=== PATIENT | female | born 1970 | race African-American/Black ===

== ENCOUNTER 2016-11-02 10:41 | Inpatient (IN) | payer MEDICARE, OTHER ==
[~2016-11-02] VITALS: Ht 165.1 cm; Wt 90.7 kg
[~2016-11-02 10:41] MED LIST: ACID CONTROL150 MG PO; ALBUTEROL SULF8.5 GM INH; ASPIRIN81 MG ORAL; ATIVAN0.5 MG ORAL; BACLOFEN10 MG PO; BUPROPION XL150 MG ORAL; DILAUDID2 MG ORAL; DOCUSATE SODIU100 MG ORAL; FLAGYL500 MG ORAL; GABAPENTIN600 MG ORAL; HYDROCODON-ACE1 EAC2 PO; LEVAQUIN500 MG ORAL; LOSARTAN POTAS100 MG ORAL; LOSARTAN POTASS25 MG ORAL; MEDROL DOSEPAK4 MG ORAL; METHOCARBAMOL750 MG ORAL; METRONIDAZOLE375 MG ORAL; NORCO 10/3251 EA ORAL; NORCO 5-325 TA1 EACH ORAL; PLAVIX75 MG ORAL; PROAIR HFA8.5 GM INH; PROPRANOLOL HCL10 MG ORAL; SOMA350 MG PO; SYMBICORT 1601 PUFFS INH; TRAMADOL HCL100 M2 ORAL; WELLBUTRIN XL150 M1 ORAL; WELLBUTRIN XL150 MG ORAL
[2016-11-02] MEDS ORDERED: Morphine Sulfate 4mg/ml Inj IVP ONE ×2 (12:00→14:45)
[2016-11-02 12:03] VITALS: BP 141/76
--- NOTE | 2016-11-02 12:12 | Diagnostic Imaging Report ---
Indication: Chest Pain Comparison: 12/21/15 A single view chest radiograph was obtained. Findings: No definite infiltrate or pulmonary vascular congestion identified. The heart is enlarged. The aorta is mildly enlarged consistent with atherosclerotic vascular disease. The bones are osteopenic. Impression: No acute disease
[2016-11-02 12:22] LABS: BASOPHILS % (AUTO) 1.1 % (0.0-2.0); EOSINOPHILS % (AUTO) 0.1 % (0.0-3.0); LYMPHOCYTES % (AUTO) 37.6 % (20.0-45.0); MEAN CORPUSCULAR HEMOGLOBIN 32.1 PG (27.0-31.0); MEAN CORPUSCULAR HGB CONC 33.3 G/DL (32.0-36.0); MEAN CORPUSCULAR VOLUME 96 FL (80-99); MEAN PLATELET VOLUME 5.9 FL (6.5-10.1); NEUTROPHILS % (AUTO) 52.2 % (45.0-75.0); PLATELET COUNT 279 K/UL (150-450); RED BLOOD COUNT 4.45 M/UL (4.20-5.40); RED CELL DISTRIBUTION WIDTH 14.5 % (11.6-14.8); WHITE BLOOD COUNT 6.9 K/UL (4.8-10.8)
[2016-11-02 12:31] LABS: INR 0.9 (0.9-1.1); PROTHROMBIN TIME 9.6 SEC (9.30-11.50)
[2016-11-02 12:37] LABS: ALANINE AMINOTRANSFERASE 23 U/L (3-33); ALBUMIN/GLOBULIN RATIO 1.4 (1.0-2.7); ANION GAP 19 (5-15); ASPARTATE AMINO TRANSFERASE 27 U/L (5-40); CALCIUM 9.1 mg/dL (8.6-10.2); CARBON DIOXIDE 20 mEQ/L (20-30); CHLORIDE 104 mEQ/L (98-107); CREATININE 0.9 mg/dL (0.5-0.9); GLOMERULAR FILTRATION RATE > 60 mL/min (>60); HEMOLYSIS 9; POTASSIUM 4.3 mEQ/L (3.4-4.9); SODIUM 143 mEQ/L (135-145); TOTAL PROTEIN 7.5 g/dL (6.6-8.7)
[2016-11-02 12:38] LABS: TROPONIN I < 0.30 ng/mL (<=0.30)
--- NOTE | 2016-11-02 12:40 | Diagnostic Imaging Report ---
Indication: Headache Technique: Contiguous 5 mm thick transaxial imaging of the head obtained in a Siemens Sensation [address] scanner. Soft tissue and bone windows generated. Total Dose length Product (DLP): [address] Dose Index Volume (CTDIvol): 70.38 mGy Comparison: 10/31/15 Findings: The size and configuration of the cortical sulci, basal cisterns, and ventricles are within normal limits for age. There is no mass effect, midline shift, or edema identified. There is no evidence of acute hemorrhage or abnormal intra-axial or extra-axial fluid collections. The bones and soft tissues are unremarkable. Impression: No mass effect, edema or acute bleed. The CT scanner at [facility] is accredited by the [employer] and the scans are performed using protocols designed to limit radiation exposure to as low as reasonably achievable to attain images of sufficient resolution adequate for diagnostic evaluation.
[2016-11-02 12:47] LABS: CKMB < 1.5 ng/mL (< 3.8)
--- NOTE | 2016-11-02 14:51 | Emergency Room Report ---
History of Present Illness General Chief Complaint: General Complaint Source: Patient Present Illness HPI Patient presents with complaints of weakness in her left side patient feels a numbness sensation to her facial area Also reports numbness to her left arm and leg Patient has had a previous CVA The onset of symptoms were about 24 hours ago Patient reports that she feels that her speech is also affected with difficulty tried to fully open her mouth Denies any neck pain or photophobia denies any fall or trauma Denies any chest pressures or shortness of breath Allergies: Coded Allergies: LISINOPRIL (Verified Allergy, Severe, Shortness of Breath, 07/02/13) coughing, vomiting SULFA (SULFONAMIDE ANTIBIOTICS) (Verified Allergy, Severe, Hives, 07/02/13) GABAPENTIN (Unverified Allergy, Unknown, 06/21/15) ACETAMINOPHEN (Verified Adverse Reaction, Intermediate, upset stomach, ) PREGABALIN (Verified Adverse Reaction, Intermediate, 07/04/13) PT STATES SHE GETS SWOLLEN Uncoded Allergies: SULFA (Allergy, Unknown, 12/21/15) Patient History Past Medical History: see triage record Pertinent Family History: none Last Menstrual Period: None Now: No : 1 Para: 0 Reviewed Nursing Documentation: PMH: Agreed, PSxH: Agreed Nursing Documentation-PMH Hx Hypertension: Yes Hx Pacemaker: No Hx Asthma: Yes - sarcoidosis, fibromyalgia Hx COPD: Yes Hx Diabetes: Yes Hx Cancer: Yes Hx Gastrointestinal Problems: No Hx Dialysis: No Hx Neurological Problems: Yes Hx Cerebrovascular Accident: Yes - 2010 Hx Seizures: No Hx Dysphasia: Yes Hx Numbness: Yes - Right sided numbness Hx Weakness: Yes - Generalized weakness Review of Systems All Other Systems: negative except mentioned in HPI Physical Exam Vital Signs Date Time Temp Pulse Resp B/P Pulse Ox O2 Delivery O2 Flow Rate FiO2 11/02/16 10:48 98.4 97 18 141/81 98 Room Air Sp02 EP Interpretation: reviewed, normal General Appearance: mild distress - Patient appears anxious Head: normocephalic, atraumatic Eyes: bilateral eye EOMI, bilateral eye PERRL ENT: hearing grossly normal, normal pharynx, TMs + canals normal, uvula midline Neck: full range of motion, supple, no meningismus, no bony tend Respiratory: lungs clear, normal breath sounds, no rhonchi, no respiratory distress, no retraction, no accessory muscle use Cardiovascular #1: normal peripheral pulses, regular rate, rhythm, no edema, no gallop, no JVD, no murmur Gastrointestinal: normal bowel sounds, non tender, soft, no mass, no organomegaly, non-distended, no guarding, no hernia, no pulsatile mass, no rebound Genitourinary: no CVA tenderness Musculoskeletal: other - 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, I do not appreciate any obvious facial droop patient subjectively however feels a numbness sensation , Neurologic: oriented x3, responsive, sensory intact Psychiatric: mood/affect normal Skin: normal color, no rash, warm/dry, palpation normal Lymphatic: normal inspection, no adenopathy Medical Decision Making Diagnostic Impression: Primary Impression: facial numbness Additional Impression: CVA (cerebral vascular accident) ER Course Patient is a fairly complex patient with multiple differential to consideration including but not limited to cardiac cardiopulmonary and intracranial vascular emergencies Patient's CT head does not show any acute disease Baseline blood work is an appropriate levels patient was given aspirin also required pain control for diffuse body ache and stable for further inpatient care Labs Test 11/02/16 12:10 White Blood Count 6.9 K/UL (4.8-10.8) Red Blood Count 4.45 M/UL (4.20-5.40) Hemoglobin 14.3 G/DL (12.0-16.0) Hematocrit 42.9 % (37.0-47.0) Mean Corpuscular Volume 96 FL (80-99) Mean Corpuscular Hemoglobin 32.1 PG (27.0-31.0) Mean Corpuscular Hemoglobin Concent 33.3 G/DL (32.0-36.0) Red Cell Distribution Width 14.5 % (11.6-14.8) Platelet Count 279 K/UL (150-450) Mean Platelet Volume 5.9 FL (6.5-10.1) Neutrophils (%) (Auto) 52.2 % (45.0-75.0) Lymphocytes (%) (Auto) 37.6 % (20.0-45.0) Monocytes (%) (Auto) 9.0 % (1.0-10.0) Eosinophils (%) (Auto) 0.1 % (0.0-3.0) Basophils (%) (Auto) 1.1 % (0.0-2.0) Prothrombin Time 9.6 SEC (9.30-11.50) Prothromb Time International Ratio 0.9 (0.9-1.1) Activated Partial Thromboplast Time 22 SEC (23-33) Sodium Level 143 mEQ/L (135-145) Potassium Level 4.3 mEQ/L (3.4-4.9) Chloride Level 104 mEQ/L (98-107) Carbon Dioxide Level 20 mEQ/L (20-30) Anion Gap 19 (5-15) Blood Urea Nitrogen 14 mg/dL (7-23) Creatinine 0.9 mg/dL (0.5-0.9) Estimat Glomerular Filtration Rate > 60 mL/min (>60) Glucose Level 94 mg/dL (74-106) Calcium Level 9.1 mg/dL (8.6-10.2) Total Bilirubin 0.4 mg/dL (0.0-1.2) Aspartate Amino Transf (AST/SGOT) 27 U/L (5-40) Alanine Aminotransferase (ALT/SGPT) 23 U/L (3-33) Alkaline Phosphatase 99 U/L (35-104) Total Creatine Kinase 113 U/L (26-140) Creatine Kinase MB < 1.5 ng/mL (< 3.8) Creatine Kinase MB Relative Index Troponin I < 0.30 ng/mL (<=0.30) Total Protein 7.5 g/dL (6.6-8.7) Albumin 4.4 g/dL (3.5-5.2) Globulin 3.1 g/dL Albumin/Globulin Ratio 1.4 (1.0-2.7) Rhythm Strip Diag. Results EP Interpretation: yes Rate: 66 Rhythm: NSR, no PVC's, no ectopy Chest X-Ray Diagnostic Results EP Interpretation: Yes Findings: no consolidation, no effusion, no pneumothorax Number of Views: 1 CT/MRI/US Diagnostic Results CT/MRI/US Diagnostic Results : Impression CT head no acute disease Last Vital Signs Date Time Temp Pulse Resp B/P Pulse Ox O2 Delivery O2 Flow Rate FiO2 11/02/16 12:45 98.5 11/02/16 12:03 96 18 141/76 99 Room Air Status: improved Disposition: ADMITTED INPATIENT Condition: Serious Referrals: NON PHYSICIAN (PCP) LUIS HIGUERA D.O. Nov 02, 2016 14:51
[2016-11-02 15:42] VITALS: BP 144/79
[2016-11-02 16:00] VITALS: BP 121/80
[2016-11-02] MEDS ORDERED: DuoNeb 0.5-3(2.5)mg/3ml neb HHN PRN (17:00)
[2016-11-02] MEDS: Docusate 100mg cap ORAL SCH (18:38)
[2016-11-02] MEDS: Morphine Sulfate 2mg/ml Inj IVP PRN ×2 (18:42→23:52)
[2016-11-02 20:00] VITALS: BP 123/67
[2016-11-02] MEDS: Heparin 5000 units/ml inj SUBQ SCH (22:19)
--- NOTE | 2016-11-02 23:28 | History and Physical Report ---
DATE OF ADMISSION: 11/02/2016 CHIEF COMPLAINT: Possible TIA and stroke. HISTORY OF PRESENT ILLNESS: She is a pleasant, but unfortunate 46-year-old female. She has a history of sarcoidosis, prior history of stroke, hypertension, asthma, and fibromyalgia. She presented to the emergency room with complaints of left-sided weakness and numbness that started on the day of admission. According to the patient, she was well until the day of admission when she woke up feeling weak on the left side. She also noted some numbness. She does have a prior history of stroke. She is on Plavix. She is otherwise been doing well. She denies any fever or chills. Denies any headaches. PAST MEDICAL HISTORY: Significant for history as above. PAST SURGICAL HISTORY: Includes history of removal of several breast masses. She has a history of a facial mass, status post excision. CURRENT MEDICATIONS: Reconciled and reviewed. ALLERGIES: Include gabapentin, lisinopril, Lyrica, Sulfa, and acetaminophen. FAMILY HISTORY: Noncontributory. SOCIAL HISTORY: There is no history of tobacco, ethanol, or drugs. REVIEW OF SYSTEMS: General: No fever or chills. HEENT: No headaches or visual changes. Positive for facial numbness. Gastrointestinal: No nausea or vomiting. Cardiopulmonary: No chest pain or shortness of breath. Genitourinary: No urinary frequency. Musculoskeletal: Positive history of fibromyalgia. Neurologic: No history of seizures. Positive history of stroke in the past. PHYSICAL EXAMINATION: VITAL SIGNS: Temperature 98 degrees, blood pressure is 121/80, pulse 77, and respirations 20. GENERAL: The patient is a well-developed female, in no apparent distress. HEENT: Pupils are equal, round, and reactive to light. Oropharynx is clear. There is no facial droop noted. NECK: Is supple with no lymphadenopathy. No carotid bruits. HEART: Regular rate and rhythm. LUNGS: Clear. ABDOMEN: Soft, nontender, and nondistended. EXTREMITIES: Without clubbing, cyanosis. NEUROLOGIC: There is no focal weakness or numbness noted. The patient states her weakness and numbness is improved. IMAGING: CT scan of the head showed no acute stroke. LABORATORY DATA: Labs are otherwise unremarkable. ASSESSMENT: 1. This is a pleasant female with a prior history of stroke admitted with complaints of left-sided weakness and numbness, possibly secondary to transient ischemic attack with left-sided weakness transient, rule out transient ischemic attack, rule out stroke. 2. Asthma. 3. Hypertension. 4. History of sarcoidosis. 5. Fibromyalgia. PLAN: Admit to monitored bed. Check an echo and a carotid duplex. Consider an MRI scan in the morning. Continue outpatient cardiac regimen. Continue respiratory treatments. Continue outpatient pain regimen. PT, OT, and ST evaluations. Jeremias Altamirano M.D. DR: JOHAN JOB#: [id number] CC:
[2016-11-03] VITALS: BP 127/78
[2016-11-03 04:02] VITALS: BP 124/75
[2016-11-03] MEDS: Morphine Sulfate 2mg/ml Inj IVP PRN ×5 (05:52→23:45)
--- NOTE | 2016-11-03 08:02 | General Progress Note ---
Assessment/Plan Problem List: (1) Facial pain ICD Codes: R51 - Headache SNOMED: 15585509 (2) facial numbness (3) TIA (transient ischemic attack) ICD Codes: G45.9 - TIA (transient ischemic attack) SNOMED: 406532099 (4) CVA (cerebral vascular accident) ICD Codes: I63.9 - Cerebral infarction, unspecified SNOMED: 114682583 (5) Sarcoidosis of lung ICD Codes: D86.0 - Sarcoidosis of lung SNOMED: 15103733 Status: stable Assessment/Plan antiplt rx with plavix check mri follow carotid duplex and echo monitor arrythmia Subjective ROS Limited/Unobtainable: No Constitutional: Reports: malaise, weakness HEENT: Reports: no symptoms Cardiovascular: Reports: no symptoms Respiratory: Reports: cough Gastrointestinal/Abdominal: Reports: no symptoms Genitourinary: Reports: no symptoms Neurologic/Psychiatric: Reports: numbness, pre-existing deficit, tingling, weakness Endocrine: Reports: no symptoms Hematologic/Lymphatic: Reports: no symptoms Allergies: Coded Allergies: LISINOPRIL (Verified Allergy, Severe, Shortness of Breath, 07/02/13) coughing, vomiting SULFA (SULFONAMIDE ANTIBIOTICS) (Verified Allergy, Severe, Hives, 07/02/13) GABAPENTIN (Unverified Allergy, Unknown, 06/21/15) ACETAMINOPHEN (Verified Adverse Reaction, Intermediate, upset stomach, ) PREGABALIN (Verified Adverse Reaction, Intermediate, 07/04/13) PT STATES SHE GETS SWOLLEN All Systems: reviewed and negative except above Subjective still feels "weak" and "numb" on the left side and face. no headaches. MRI completed. no results yet. Objective Last 24 Hour Vital Signs Date Time Temp Pulse Resp B/P Pulse Ox O2 Delivery O2 Flow Rate FiO2 11/03/16 04:02 98.8 90 20 124/75 95 Room Air 11/03/16 00:00 85 11/03/16 00:00 97.7 87 20 127/78 97 Room Air 11/02/16 20:00 90 11/02/16 20:00 97.4 88 20 123/67 98 Room Air 11/02/16 16:00 92 11/02/16 16:00 98.2 77 20 121/80 95 Room Air 11/02/16 15:43 98.5 94 20 144/79 96 Room Air 11/02/16 15:42 98.5 94 20 144/79 96 Room Air 11/02/16 15:18 98.5 11/02/16 12:45 98.5 11/02/16 12:03 96 18 141/76 99 Room Air 11/02/16 10:48 98.4 97 18 141/81 98 Room Air Intake and Output 11/02/16 11/03/16 19:00 07:00 Intake Total 0 ml 500 ml Balance 0 ml 500 ml Intake Oral 0 ml 500 ml # Bowel Movements 1 Laboratory Tests 11/02/16 12:10: White Blood Count 6.9, Red Blood Count 4.45, Hemoglobin 14.3, Hematocrit 42.9, Mean Corpuscular Volume 96, Mean Corpuscular Hemoglobin 32.1H, Mean Corpuscular Hemoglobin Concent 33.3, Red Cell Distribution Width 14.5, Platelet Count 279, Mean Platelet Volume 5.9L, Neutrophils (%) (Auto) 52.2, Lymphocytes (%) (Auto) 37.6, Monocytes (%) (Auto) 9.0, Eosinophils (%) (Auto) 0.1, Basophils (%) (Auto ) 1.1, Prothrombin Time 9.6, Prothromb Time International Ratio 0.9, Activated Partial Thromboplast Time 22L, Sodium Level 143, Potassium Level 4.3, Chloride Level 104, Carbon Dioxide Level 20, Anion Gap 19H, Blood Urea Nitrogen 14, Creatinine 0.9, Estimat Glomerular Filtration Rate > 60, Glucose Level 94, Calcium Level 9.1, Total Bilirubin 0.4, Aspartate Amino Transf (AST/SGOT) 27, Alanine Aminotransferase (ALT/SGPT) 23, Alkaline Phosphatase 99, Total Creatine Kinase 113, Creatine Kinase MB < 1.5, Creatine Kinase MB Relative Index , Troponin I < 0.30, Total Protein 7.5, Albumin 4.4, Globulin 3.1, Albumin/ Globulin Ratio 1.4 Height (Feet): 5 Height (Inches): 5.00 Weight (Pounds): 200 General Appearance: WD/WN, alert Neck: supple Cardiovascular: regular rhythm Respiratory/Chest: lungs clear, normal breath sounds, no respiratory distress Abdomen: normal bowel sounds, non tender, soft, no organomegaly Edema: no edema noted Arm (L), no edema noted Arm (R), no edema noted Leg (L), no edema noted Leg (R), no edema noted Pedal (L), no edema noted Pedal (R), no edema noted Generalized 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
[2016-11-03 08:07] VITALS: BP 131/71
[2016-11-03] MEDS: Docusate 100mg cap ORAL SCH ×2 (08:51→18:24)
[2016-11-03] MEDS: BuPROPion XL 150mg tab ORAL SCH (08:53)
[2016-11-03] MEDS: Heparin 5000 units/ml inj SUBQ SCH ×2 (08:54→22:30)
[2016-11-03] MEDS ORDERED: Losartan 25mg tab ORAL SCH (09:00)
--- NOTE | 2016-11-03 10:29 | Diagnostic Imaging Report ---
Indication: 46-year-old female with left-sided weakness. Technique: The head was imaged in a 1.5 Ana Maria magnet. Sequences obtained include sagittal and axial T1 FLAIR, axial T2 fast spin echo with fat saturation, axial T2 FLAIR, diffusion and ADC map. Comparison: CT head 10/31/15, MRI head 11/02/15 and 07/02/13. Findings: There are a few scattered periventricular and subcortical T2 hyperintense foci best demonstrated on T2 FLAIR sequences. No contrast was given. Comparison to previous studies show some of these lesions were present previously. There is one prominent lesion that is no longer seen within the left parietal lobe (for example previous MRI 11/02/15, series 9, image 12). The findings are suspicious for demyelinating disease. The diagnosis was suggested in 2013 MRI report. Correlation with prior clinical workup (if done) or additional workup is strongly suggested. There is no mass effect or edema. Basal cisterns, ventricles, cerebral sulci appear normal. Corpus callosum, sella, osseous bone marrow signal are unremarkable. There is no diffusion restriction. Impression: Suspicion of demyelinating disease given multiple foci of T2 hyperintensity within white matter tracts, mainly portions of the centrum semiovale. These lesions have changed in intensity and number in comparison to MRIs performed in 2013 and 2016. Further clinical workup for multiple sclerosis is recommended and research into whether prior clinical workups have been performed is recommend.
[2016-11-03 11:23] VITALS: BP 119/81
[2016-11-03 16:00] VITALS: BP 123/77
--- NOTE | 2016-11-03 16:40 | Neurology Progress Note ---
Interim History Interim History ROS Limited/Unobtainable: No Objective Physical Exam Last Vital Signs Date Time Temp Pulse Resp B/P Pulse Ox O2 Delivery O2 Flow Rate FiO2 11/03/16 16:00 97.9 92 20 123/77 95 Room Air Impression/Recommendations Problems: (1) recurrentTIA like episodes.r/o DRAFTING LAYOUT MAN sarcoidosis, r/o demyelination/MS (2) chronic pain/fibromyalgia (3) Depression with anxiety Status: stable, unchanged Recommendations #[id number] KATRIN ESTEVEZ Nov 03, 2016 16:40
[2016-11-03 20:00] VITALS: BP 131/79
--- NOTE | 2016-11-03 23:27 | Consultation ---
DATE OF CONSULTATION: 11/03/2016 NEUROLOGICAL CONSULTATION CONSULTING PHYSICIAN: Thom Mackey M.D. REQUESTING PHYSICIAN: Jeremias Altamirano M.D. HISTORY OF PRESENT ILLNESS: The patient is a 46-year-old female, seen in neurological consultation to evaluate new onset of weakness in left side of the body, numbness in her left facial area, and numbness in her left leg and left arm. Her vital signs on admission were stable. She has blood pressure of 140/81 and temperature 98.2 degrees. There was no objective neurological findings detected. Her imaging studies included CAT scan of the brain that revealed no mass effect, no edema, and no acute bleed, essentially normal study. MRI of the brain without contrast revealed a few scattered periventricular subcortical hyperintense foci. This was compared with the previous study from 07/02/2013. Some of the lesions were present previously. Findings were suspicious for demyelinating disease. There is no mass effect and no edema. There was impression of suspicious for demyelinating disease given multiple foci within white matter and mainly centrum semiovale, which changed in intense and number when compared with the previous study from 2012. Laboratory work included normal CBC study, normal coagulation panel, and chemistry panel was unremarkable except anion gap of 19. The patient now informs me that left facial numbness occurred on and off for many years, now her main concern is for generalized body ache and pain more on the touch and more when exposed to cold weather. She developed off and on imbalance over several years. She has at times blurriness of vision, on and off diffuse headaches presumptively in occipital region, and she has a history of urinary incontinence since 2013. The patient is known to me from a previous assessment in June 2013 when she presented with a history of disseminated sarcoidosis since 1996 when she had meningeal signs and had a spinal tap, which confirmed the diagnosis. The patient had new episodes of possible stroke with symptoms such as slurred speech and clumsiness, weakness in lower extremities with MRI of the brain revealing deep white matter changes suspicious for demyelinating process. The patient had a spinal tap done with the findings inconclusive and the diagnosis of MS was not confirmed. The patient also presented with numbness in her face, tingling sensation in hands and feet, and off balance when ambulating. There was hypersensitivity in both upper and lower extremities. PAST MEDICAL HISTORY: Since she was diagnosed with sarcoidosis, she developed signs of hypertension, diabetes type 2, hyperlipidemia, bronchial asthma, she developed morbid obesity, chronic pain syndrome, suspected to be fibromyalgia, although sarcoid myopathy, and polyneuropathy were also suspected. Her laboratory work in 2013 revealed it was negative for Lyme disease, negative for HIV. Her CSF was negative except slight lymphocytic leukocytosis with normal protein and sugar, negative JUAN A, but elevated triglycerides, and coagulopathy panel was negative. The patient has a history of a leaking valve and obesity as well. MEDICATIONS: Her treatment prior to admission included albuterol, Wellbutrin 300 mg daily, Soma, Plavix, hydrocodone 10 mg t.i.d. p.r.n., and losartan. ALLERGIES: Gabapentin, lisinopril, Lyrica, sulfa drugs, Tylenol, and acetaminophen. FAMILY HISTORY: Noncontributory. SOCIAL HISTORY: The patient indicates that she has no established place to live, but she is planning to live. The patient blames this on the fact that her apartment was infested with a mold and for this reason, she was hospitalized three months ago at [facility]. She is living in apartment and looking for another one. Denies alcohol or drug abuse. REVIEW OF SYMPTOMS: A 13-point review of system was obtained and was negative except those in history of present illness. PHYSICAL EXAMINATION: GENERAL: A well-developed, morbidly obese female, not in acute distress, but is quite anxious. VITAL SIGNS: Stable. Blood pressure 133/77, respirations 18, and heart rate of 92. HEENT: Head, normocephalic. No evidence of trauma. The patient is very concerned that she has some sharp pains in occipital region. There is palpable tenderness even on a slight touch of upper back, but diffusely the whole body. The patient is withdrawing when slightly touched to any parts of the body and was barely tolerating pin sensation. EXTREMITIES: Peripheral pulses 1+ symmetric. MENTAL STATUS: Alert and oriented x3 with no evidence of aphasia or apraxia. Cognitive function normal. Emotional, labile, tense, anxious, and seems depressed. CRANIAL NERVE II: Pupils both responding to light and accommodation. Extraocular movement intact. No nystagmus. CRANIAL NERVE V: Normal corneal responses. CRANIAL NERVE VII: No facial asymmetry. CRANIAL NERVE VIII: Normal hearing. CRANIAL NERVE IX THROUGH XII: Within normal limits. MOTOR EXAMINATION: Able to lift arms and legs against the gravity. Strength is 5/5. Deep tendon reflexes 1+ symmetric with downgoing toes on both sides. SENSORY EXAMINATION: Hypersensitivity, generalized. Gait is slow, but stable. IMPRESSION: 1. This is a 46-year-old lady with generalized sarcoidosis presenting with intermittent transient ischemic attack-like symptomatology in the setting of abnormal MRI studies. Rule out central nervous system sarcoidosis, rule out demyelinating disease. 2. Hypertension. 3. Chronic pain syndrome, myalgia, and generalized hypersensitivity. 4. Morbid obesity. RECOMMENDATION: Repeat LP, obtain demyelinating profile and BABITA titer. The patient to continue with aspirin. Started on statins to prevent from stroke in the setting of hyperlipidemia. The patient is to continue with antidepressants, also psychiatry assessment to streamline her treatment. Thank you for allowing me to see this interesting patient in neurological consultation. Thom Mackey M.D. DR: PREMA JOB#: [id number] CC:
[2016-11-04] VITALS: BP 155/74
--- NOTE | 2016-11-04 01:37 | Progress Note ---
DATE: 11/03/2016 CARDIOLOGY PROGRESS NOTE SUBJECTIVE: The patient still feels weakness and numbness on the left side. No headache. MRI reviewed hyperintense foci noted. Monitored rhythm sinus with no ectopy. OBJECTIVE: VITAL SIGNS: Afebrile. Blood pressure 124/75, pulse 90, and respirations 20. HEENT: Conjunctivae are pink. Oropharynx is clear. No facial asymmetry. NECK: Supple. No bruits. LUNGS: Clear. CARDIAC: Regular rhythm and rate. Normal S1 and S2. No murmur. There is a fourth heart sound. ABDOMEN: Soft. EXTREMITIES: No edema. LABORATORY DATA: Unremarkable from admission. IMPRESSION: 1. Transient ischemic attack. 2. Systemic sarcoidosis. 3. Hypertensive heart disease with controlled blood pressure range. 4. Cardiomyopathy with no signs of cardiac arrhythmias at this time. PLAN: 1. Anti-platelet therapy. 2. Follow up lipid panel and consider statin therapy. 3. Await MRI reviewed by neurologist. 4. Await carotid duplex studies. Alphonse Washington M.D. DR: ROBI JOB#: [id number] CC:
--- NOTE | 2016-11-04 03:07 | Consultation ---
DATE OF CONSULTATION: 11/02/2016 CARDIOLOGY CONSULTATION: REQUESTING PHYSICIAN: Jeremias Altamirano M.D. REASON FOR CONSULTATION: Left-sided weakness in the setting of hypertensive cardiomyopathy and systemic sarcoidosis. HISTORY OF PRESENT ILLNESS: This is a 46-year-old female. She has a history of systemic sarcoidosis and hypertensive cardiomyopathy. She presented to the emergency room with left-sided weakness, numbness of her face, and was admitted for further management. Her initial workup including a CAT scan of the brain revealed no acute process and MRI revealing scattered subcortical hyperintense foci. Her initially electrocardiogram revealed sinus rhythm with no acute abnormalities. I have been asked to assist with further cardiovascular care. PAST MEDICAL HISTORY: Systemic sarcoidosis, hypertension, diabetes mellitus type 2, hyperlipidemia, asthma, chronic pain syndrome due to fibromyalgia, and fibrocystic breast disease with history of breast biopsies. MEDICATIONS: Prior to admission, reviewed and reconciled. ALLERGIES: Include lisinopril, sulfa, acetaminophen, gabapentin, and Lyrica. SOCIAL HISTORY: Negative for smoking, alcohol, or substance abuse. FAMILY HISTORY: Noncontributory. REVIEW OF SYSTEMS: Outpatient echocardiogram has revealed normal ejection fraction with concentric hypertrophy, and no significant valvular disease or pulmonary hypertension. Prior laboratory workups were negative for HIV and lyme disease. Prior CSF was negative. PHYSICAL EXAMINATION: GENERAL: The patient is a morbidly obese, in no acute distress. VITAL SIGNS: Blood pressure 141/76, pulse 96, respiratory rate 18, and afebrile. NECK: Supple. HEENT: Conjunctivae are pink. Sclerae are anicteric. NECK: Jugular venous pressure normal. LUNGS: Clear. CARDIAC: Regular rhythm and rate. Normal S1, S2 with a fourth heart sound. ABDOMEN: Soft and nontender with no guarding or rebound. EXTREMITIES: Good pulses. No clubbing, cyanosis, or edema. NEUROLOGIC: Reveals symmetric strength at this time with some sensory deficits on the left side. IMPRESSION: 1. Possible acute cerebrovascular accident versus transient ischemic attack. 2. Hypertensive heart disease. 3. Systemic sarcoidosis. 4. History of hyperlipidemia. 5. Fibromyalgia with chronic pain. 6. Type 2 diabetes mellitus. PLAN: Cardiac monitoring. Anti-platelet therapy. Check lipid panel and initiate statin drug. Carotid duplex. Repeat echocardiogram. Monitor for cardiac arrhythmias. Alphonse Washington M.D. DR: Elver JOB#: [id number] CC:
[2016-11-04] MEDS: Morphine Sulfate 2mg/ml Inj IVP PRN ×5 (04:37→23:52)
[2016-11-04 04:52] VITALS: BP 149/84
[2016-11-04 07:55] VITALS: BP 139/85
--- NOTE | 2016-11-04 07:55 | General Progress Note ---
Assessment/Plan Problem List: (1) Facial pain ICD Codes: R51 - Headache SNOMED: 73774711 (2) facial numbness (3) TIA (transient ischemic attack) ICD Codes: G45.9 - TIA (transient ischemic attack) SNOMED: 375188959 (4) CVA (cerebral vascular accident) ICD Codes: I63.9 - Cerebral infarction, unspecified SNOMED: 249869102 (5) Sarcoidosis of lung ICD Codes: D86.0 - Sarcoidosis of lung SNOMED: 63232392 Status: stable, progressing Assessment/Plan antiplt rx with plavix statin rx LP per neuro follow carotid duplex and echo monitor arrythmia Subjective ROS Limited/Unobtainable: No Constitutional: Reports: malaise, weakness HEENT: Reports: no symptoms Cardiovascular: Reports: no symptoms Respiratory: Reports: cough Gastrointestinal/Abdominal: Reports: no symptoms Genitourinary: Reports: no symptoms Neurologic/Psychiatric: Reports: numbness, paresthesia, pre-existing deficit, tingling, weakness Endocrine: Reports: no symptoms Hematologic/Lymphatic: Reports: no symptoms Allergies: Coded Allergies: LISINOPRIL (Verified Allergy, Severe, Shortness of Breath, 07/02/13) coughing, vomiting SULFA (SULFONAMIDE ANTIBIOTICS) (Verified Allergy, Severe, Hives, 07/02/13) GABAPENTIN (Unverified Allergy, Unknown, 06/21/15) ACETAMINOPHEN (Verified Adverse Reaction, Intermediate, upset stomach, ) PREGABALIN (Verified Adverse Reaction, Intermediate, 07/04/13) PT STATES SHE GETS SWOLLEN All Systems: reviewed and negative except above Subjective still feels "weak" and "numb" on the left side and face. no headaches. MRI completed noted. concern about demyelinating dz Objective Last 24 Hour Vital Signs Date Time Temp Pulse Resp B/P Pulse Ox O2 Delivery O2 Flow Rate FiO2 11/04/16 04:52 98.0 87 20 149/84 97 Room Air 11/04/16 04:44 89 11/04/16 00:04 88 11/04/16 00:00 98.0 91 20 155/74 96 Room Air 11/03/16 20:00 97.6 97 22 131/79 97 Room Air 11/03/16 19:42 95 18 Room Air 11/03/16 16:00 92 11/03/16 16:00 97.9 92 20 123/77 95 Room Air 11/03/16 12:00 98 11/03/16 11:23 97.3 84 18 119/81 97 Room Air 11/03/16 08:53 131/71 11/03/16 08:07 98.2 89 18 131/71 96 Room Air 11/03/16 08:00 88 Intake and Output 11/03/16 11/04/16 19:00 07:00 Intake Total 400 ml 260 ml Balance 400 ml 260 ml Intake Oral 400 ml 260 ml # Voids 1 Laboratory Tests 11/04/16 06:10: Triglycerides Level [Pending], Cholesterol Level [Pending], LDL Cholesterol [ Pending], HDL Cholesterol [Pending], Cholesterol/HDL Ratio [Pending] Height (Feet): 5 Height (Inches): 5.00 Weight (Pounds): 200 General Appearance: WD/WN, alert Neck: supple Cardiovascular: regular rhythm Respiratory/Chest: lungs clear, normal breath sounds, no respiratory distress Abdomen: normal bowel sounds, non tender, soft, no organomegaly Edema: no edema noted Arm (L), no edema noted Arm (R), no edema noted Leg (L), no edema noted Leg (R), no edema noted Pedal (L), no edema noted Pedal (R), no edema noted Generalized Neurologic: abnormal gait, abnormal ultrasonographer II-XII, sensory deficit Skin: normal pigmentation NAVJOT RAMSAY Nov 04, 2016 07:55
[2016-11-04 08:00] LABS: CHOLESTEROL/HDL RATIO 3.2 (3.3-4.4)
[2016-11-04] MEDS: Docusate 100mg cap ORAL SCH ×2 (08:15→17:09)
[2016-11-04] MEDS: BuPROPion XL 150mg tab ORAL SCH (08:16)
[2016-11-04] MEDS: Losartan 50mg tab ORAL SCH (08:17)
[2016-11-04] MEDS: Heparin 5000 units/ml inj SUBQ SCH ×2 (08:17→21:32)
[2016-11-04 11:35] VITALS: BP 146/89
--- NOTE | 2016-11-04 12:02 | Diagnostic Imaging Report ---
Indications: Left-sided weakness, bilateral cerebral white matter lesions on prior unenhanced MRI of the brain suggesting the presence of demyelinating disease, requiring more detailed evaluation Technique: Axial T1 weighted FLAIR, sagittal and axial T2-weighted FLAIR sequences the brain performed prior to IV gadolinium administration. Coronal and axial T1 weighted FLAIR sequences performed following IV gadolinium administration. Findings: Comparison: MRI brain without gadolinium 11/02/16 Multiple foci of T2 signal hyperintensity are again noted scattered throughout the bilateral cerebral periventricular, pericallosal, deep and subcortical white matter area and no associated T1 signal abnormality or enhancement. No involvement of corpus callosum itself. No involvement of cerebellum or brainstem. Impression: Nonspecific multifocal signal change bilateral cerebral white matter, may represent demyelinating disease such as multiple sclerosis, though imaging characteristics not entirely typical. Chronic microvascular ischemic changes or other microangiopathy must be considered.
--- NOTE | 2016-11-04 12:03 | Neurology Progress Note ---
Interim History Interim History ROS Limited/Unobtainable: No Complaints: feel better Events: stable Objective Physical Exam Last Vital Signs Date Time Temp Pulse Resp B/P Pulse Ox O2 Delivery O2 Flow Rate FiO2 11/04/16 11:35 96.6 85 18 146/89 100 Room Air Laboratory Tests Test 11/04/16 06:10 Triglycerides Level 142 mg/dL (< 150) Cholesterol Level 208 mg/dL (< 200) H LDL Cholesterol 115 mg/dL (60-99) H HDL Cholesterol 65 mg/dL (> 60) H Cholesterol/HDL Ratio 3.2 (3.3-4.4) L General: well developed, no acute distress, other - obese generalised tenderness Head: normocophalic, atraumatic Neck: other - sl rigid Neurologic Exam Mental Status: awake, alert, oriented x4, normal cognition, normal recent memory Speech: normal speech, no dysarthia Language: normal language, no aphasia Cranial Nerve II: fundus normal, visual baxter, no papilledema Cranial Nerves III, IV, : PERRLA, EOMI, pupils Cranial Nerve V: normal facial sensations, temporales function normal, masseters function normal, pterygoids function normal Cranial Nerve VII: no facial asymmetry, normal facial expressions Cranial Nerve VIII: normal hearing, no nystagmus Cranial Nerve IX: normal palate elevation, gag response Cranial Nerve X: no voice hoarseness Cranial Nerve XI: SCM symmetric, trapezii function normal Cranial Nerve XII: tongue midline, no tongue atrophy/fasciculations Motor System: no involuntary movement, no muscle wasting Sensory: normal pinprick Coordination: normal finger to nose bilaterally Deep Tendon Reflexes: 0 ankle (L), 0 ankle (R), 0 bicep (L), 0 bicep (R), 0 brachioradialis (L), 0 brachioradialis (R), 0 knee (L), 0 knee (R), 0 tricep (L) , 0 tricep (R) Reflexes: mute plantar (L), mute plantar (R) Impression/Recommendations Problems: (1) recurrentTIA like episodes.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
--- NOTE | 2016-11-04 12:03 | Neurology Progress Note ---
Interim History Interim History ROS Limited/Unobtainable: No Complaints: feel better Events: stable Objective Physical Exam Last Vital Signs Date Time Temp Pulse Resp B/P Pulse Ox O2 Delivery O2 Flow Rate FiO2 11/04/16 11:35 96.6 85 18 146/89 100 Room Air Laboratory Tests Test 11/04/16 06:10 Triglycerides Level 142 mg/dL (< 150) Cholesterol Level 208 mg/dL (< 200) H LDL Cholesterol 115 mg/dL (60-99) H HDL Cholesterol 65 mg/dL (> 60) H Cholesterol/HDL Ratio 3.2 (3.3-4.4) L General: well developed, no acute distress, other - obese generalised tenderness Head: normocophalic, atraumatic Neck: other - sl rigid Neurologic Exam Mental Status: awake, alert, oriented x4, normal cognition, normal recent memory Speech: normal speech, no dysarthia Language: normal language, no aphasia Cranial Nerve II: fundus normal, visual baxter, no papilledema Cranial Nerves III, IV, : PERRLA, EOMI, pupils Cranial Nerve V: normal facial sensations, temporales function normal, masseters function normal, pterygoids function normal Cranial Nerve VII: no facial asymmetry, normal facial expressions Cranial Nerve VIII: normal hearing, no nystagmus Cranial Nerve IX: normal palate elevation, gag response Cranial Nerve X: no voice hoarseness Cranial Nerve XI: SCM symmetric, trapezii function normal Cranial Nerve XII: tongue midline, no tongue atrophy/fasciculations Motor System: no involuntary movement, no muscle wasting Sensory: normal pinprick Coordination: normal finger to nose bilaterally Deep Tendon Reflexes: 0 ankle (L), 0 ankle (R), 0 bicep (L), 0 bicep (R), 0 brachioradialis (L), 0 brachioradialis (R), 0 knee (L), 0 knee (R), 0 tricep (L) , 0 tricep (R) Reflexes: mute plantar (L), mute plantar (R) Impression/Recommendations Problems: (1) recurrentTIA like episodes.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
[2016-11-04] MEDS: Norco 10mg/325mg tab ORAL PRN (12:26)
[2016-11-04] MEDS ORDERED: Sodium Bicarbonate 8.4% 50ml Inj IV ONE (13:00)
[2016-11-04] MEDS ORDERED: Lidocaine 1% Plain 30 ml INJ ONE (13:00)
--- NOTE | 2016-11-04 15:48 | Diagnostic Imaging Report ---
Indications: Altered mental status, left-sided weakness, multifocal cerebral white matter disease on MRI Technique: Procedure, indications, risks, alternatives were explained to the patient, who understands and gives written consent to proceed. The patient was placed on the fluoroscopy table in prone oblique position. Lumbar spine were surveyed sonographically. The left sublaminar space at the L3-L4 level was localized fluoroscopically. Overlying skin was marked. Strict aseptic technique was utilized, including hand washing, use of hat and mask, use of sterile gown and gloves, prepping of overlying posterior skin with 2% chlorhexidine solution, and application of large sterile barrier over this area. Skin and subcutaneous soft tissues were infiltrated with 1% lidocaine. A 22-gauge spinal needle was advanced percutaneously via this approach under direct fluoroscopic guidance into the thecal sac. Opening pressure was measured. Approximately 9 cc of cerebrospinal fluid were aspirated. Fluoroscopic spot film image was obtained. Needle was removed. Puncture site was manually compressed to achieve hemostasis, then cleansed and bandaged. Patient tolerated procedure well without immediate complications and was returned to her room in stable condition. Cerebrospinal fluid was sent to the laboratory for analysis, as ordered. Total fluoroscopy time: 2.1 minutes. Dose-area product: 107 dGy-cm2 Findings: Comparison: None Intraprocedural image demonstrates spinal needle traversing the left sublaminar space at L3-L4. Opening pressure measures 15 cm of water. Aspirated cerebrospinal fluid is clear. IMPRESSION: Fluoroscopically guided lumbar puncture , laboratory results pending. Opening pressure within normal limits.
[2016-11-04 16:00] VITALS: BP 126/80
[2016-11-04 17:17] LABS: GLUCOSE,CSF 66 mg/dL (50-80)
[2016-11-04 18:49] LABS: APPEARANCE,CSF CLEAR; COLOR,CSF COLORLESS
[2016-11-04 18:51] LABS: WHITE BLOOD CELL,CSF 3 /CU MM (0-5)
[2016-11-04 18:52] LABS: CSF COMMENT NO DIFFERENTIAL DONE
[2016-11-04 20:00] VITALS: BP 124/74
[2016-11-05 00:30] VITALS: BP 124/83
[2016-11-05 04:16] VITALS: BP 116/84
[2016-11-05] MEDS: Morphine Sulfate 2mg/ml Inj IVP PRN ×5 (04:41→22:32)
--- NOTE | 2016-11-05 07:51 | General Progress Note ---
Assessment/Plan Problem List: (1) Facial pain ICD Codes: R51 - Headache SNOMED: 09124954 (2) facial numbness (3) TIA (transient ischemic attack) ICD Codes: G45.9 - TIA (transient ischemic attack) SNOMED: 422713443 (4) CVA (cerebral vascular accident) ICD Codes: I63.9 - Cerebral infarction, unspecified SNOMED: 863051225 (5) Sarcoidosis of lung ICD Codes: D86.0 - Sarcoidosis of lung SNOMED: 33897409 Status: stable, progressing Assessment/Plan antiplt rx with plavix statin rx follow up LP results follow up echo monitor arrythmia pt/ot/st as needed pain rx Subjective ROS Limited/Unobtainable: No Constitutional: Reports: malaise, weakness HEENT: Reports: no symptoms Cardiovascular: Reports: no symptoms Respiratory: Reports: no symptoms Gastrointestinal/Abdominal: Reports: no symptoms Genitourinary: Reports: no symptoms Neurologic/Psychiatric: Reports: emotional problems, numbness, paresthesia, tingling, weakness Endocrine: Reports: no symptoms Hematologic/Lymphatic: Reports: no symptoms Allergies: Coded Allergies: LISINOPRIL (Verified Allergy, Severe, Shortness of Breath, 07/02/13) coughing, vomiting SULFA (SULFONAMIDE ANTIBIOTICS) (Verified Allergy, Severe, Hives, 07/02/13) GABAPENTIN (Unverified Allergy, Unknown, 06/21/15) ACETAMINOPHEN (Verified Adverse Reaction, Intermediate, upset stomach, ) PREGABALIN (Verified Adverse Reaction, Intermediate, 07/04/13) PT STATES SHE GETS SWOLLEN All Systems: reviewed and negative except above Subjective no events. s/p LP. c/o "stabbing" pain on the side of the head. no new weakness or numbness Objective Last 24 Hour Vital Signs Date Time Temp Pulse Resp B/P Pulse Ox O2 Delivery O2 Flow Rate FiO2 11/05/16 04:16 98.4 89 20 116/84 95 Room Air 11/05/16 04:00 93 11/05/16 00:30 98.6 93 20 124/83 97 Room Air 11/05/16 00:00 91 11/04/16 20:38 78 18 Room Air 11/04/16 20:00 98.4 95 20 124/74 97 Room Air 11/04/16 20:00 91 11/04/16 16:00 98.2 78 20 126/80 96 Room Air 11/04/16 16:00 83 11/04/16 13:25 96.6 11/04/16 13:25 96.6 11/04/16 11:35 96.6 85 18 146/89 100 Room Air 11/04/16 09:45 99 18 Room Air 11/04/16 09:15 98.4 11/04/16 08:17 139/85 11/04/16 07:55 98.4 87 18 139/85 100 Room Air 11/04/16 07:53 89 Intake and Output 11/04/16 11/05/16 19:00 07:00 Intake Total 460 ml 240 ml Balance 460 ml 240 ml Intake Oral 460 ml 240 ml # Voids 3 1 Laboratory Tests 11/04/16 11:17: CSF Appearance Clear, CSF Color Colorless, CSF WBC 3, CSF RBC 1, CSF Neutrophils % , CSF Lymphocytes % , CSF Monocytes % , CSF Crenated Cells 0, CSF Comment No differential done, CSF Glucose 66, CSF Total Protein 29, CSF Myelin Basic Protein [Pending], CSF Oligoclonal Bands [Pending], CSF VDRL [Pending], Angiotensin Converting Enzyme [Pending] Height (Feet): 5 Height (Inches): 5.00 Weight (Pounds): 200 Objective General Appearance: WD/WN, alert Neck: supple Cardiovascular: regular rhythm Respiratory/Chest: lungs clear, normal breath sounds, no respiratory distress Abdomen: normal bowel sounds, non tender, soft, no organomegaly Edema: no edema noted Arm (L), no edema noted Arm (R), no edema noted Leg (L), no edema noted Leg (R), no edema noted Pedal (L), no edema noted Pedal (R), no edema noted Generalized Neurologic: abnormal gait, 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
[2016-11-05 08:00] VITALS: BP 135/90
[2016-11-05] MEDS: BuPROPion XL 150mg tab ORAL SCH (08:50)
[2016-11-05] MEDS: Docusate 100mg cap ORAL SCH ×2 (08:51→18:26)
[2016-11-05] MEDS: Losartan 50mg tab ORAL SCH (08:52)
[2016-11-05] MEDS: Heparin 5000 units/ml inj SUBQ SCH ×2 (08:58→21:38)
[2016-11-05 12:00] VITALS: BP 115/91
--- NOTE | 2016-11-05 15:08 | Neurology Progress Note ---
Interim History Interim History ROS Limited/Unobtainable: No Complaints: today severe MCPHERSON, nonpositional Events: stable CSF ok Objective Physical Exam Last Vital Signs Date Time Temp Pulse Resp B/P Pulse Ox O2 Delivery O2 Flow Rate FiO2 11/05/16 12:00 98.2 95 17 115/91 97 Room Air General: well developed, no acute distress, other - obese generalised tenderness Head: normocophalic, atraumatic Neck: other - sl rigid Neurologic Exam Mental Status: awake, alert, oriented x4, normal cognition, normal recent memory Speech: normal speech, no dysarthia Language: normal language, no aphasia Cranial Nerve II: fundus normal, visual baxter, no papilledema Cranial Nerves III, IV, : PERRLA, EOMI, pupils Cranial Nerve V: normal facial sensations, temporales function normal, masseters function normal, pterygoids function normal Cranial Nerve VII: no facial asymmetry, normal facial expressions Cranial Nerve VIII: normal hearing, no nystagmus Cranial Nerve IX: normal palate elevation, gag response Cranial Nerve X: no voice hoarseness Cranial Nerve XI: SCM symmetric, trapezii function normal Cranial Nerve XII: tongue midline, no tongue atrophy/fasciculations Motor System: no involuntary movement, no muscle wasting Sensory: normal pinprick Coordination: normal finger to nose bilaterally Deep Tendon Reflexes: 0 ankle (L), 0 ankle (R), 0 bicep (L), 0 bicep (R), 0 brachioradialis (L), 0 brachioradialis (R), 0 knee (L), 0 knee (R), 0 tricep (L) , 0 tricep (R) Reflexes: mute plantar (L), mute plantar (R) Impression/Recommendations Problems: (1) recurrentTIA like episodes.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
[2016-11-05] MEDS ORDERED: LORazepam Inj 2mg/ml 1ml IV PRN (15:15)
[2016-11-05 16:00] VITALS: BP 99/61
[2016-11-05] MEDS: Norco 10mg/325mg tab ORAL PRN (16:39)
--- NOTE | 2016-11-05 17:05 | Diagnostic Imaging Report ---
APPROVED REPORT CPT Code: 21572 Vascular Symptoms CVA/TIA: CAROTID (BILATERAL) - Imaging reveals no significant plaque within the right and left extracranial carotid arteries. The Doppler spectral flow analysis is within normal limits throughout the extracranial carotid arteries bilaterally. VERTEBRAL- The vertebral arteries are within normal limits.
[2016-11-05 20:00] VITALS: BP 125/78
[2016-11-05] MEDS ORDERED: Pseudoephedrine 30mg tab ORAL ONE (22:30)
[2016-11-06] VITALS (7 sets, daily range): BP systolic 108–138; BP diastolic 77–99
[2016-11-06] MEDS: Morphine Sulfate 2mg/ml Inj IVP PRN ×5 (04:34→21:33)
--- NOTE | 2016-11-06 07:51 | General Progress Note ---
Assessment/Plan Problem List: (1) Facial pain ICD Codes: R51 - Headache SNOMED: 49081409 (2) facial numbness (3) TIA (transient ischemic attack) ICD Codes: G45.9 - TIA (transient ischemic attack) SNOMED: 440540256 (4) CVA (cerebral vascular accident) ICD Codes: I63.9 - Cerebral infarction, unspecified SNOMED: 335399775 (5) Sarcoidosis of lung ICD Codes: D86.0 - Sarcoidosis of lung SNOMED: 84608442 Status: stable, progressing Assessment/Plan antiplt rx with plavix statin rx follow up LP results follow up echo monitor arrythmia pt/ot/st as needed pain rx pt/ot eval Subjective ROS Limited/Unobtainable: No Constitutional: Reports: malaise, weakness HEENT: Reports: no symptoms Cardiovascular: Reports: no symptoms Respiratory: Reports: no symptoms Gastrointestinal/Abdominal: Reports: no symptoms Genitourinary: Reports: no symptoms Neurologic/Psychiatric: Reports: headache, paresthesia, pre-existing deficit, tingling, weakness Endocrine: Reports: no symptoms Hematologic/Lymphatic: Reports: no symptoms Allergies: Coded Allergies: LISINOPRIL (Verified Allergy, Severe, Shortness of Breath, 07/02/13) coughing, vomiting SULFA (SULFONAMIDE ANTIBIOTICS) (Verified Allergy, Severe, Hives, 07/02/13) GABAPENTIN (Unverified Allergy, Unknown, 06/21/15) ACETAMINOPHEN (Verified Adverse Reaction, Intermediate, upset stomach, ) PREGABALIN (Verified Adverse Reaction, Intermediate, 07/04/13) PT STATES SHE GETS SWOLLEN All Systems: reviewed and negative except above Subjective no events. s/p LP. no new comlaints. no new weakness or numbness. csf studies still pending Objective Last 24 Hour Vital Signs Date Time Temp Pulse Resp B/P Pulse Ox O2 Delivery O2 Flow Rate FiO2 11/06/16 04:00 94 11/06/16 04:00 97.0 94 18 131/77 98 Room Air 11/06/16 00:00 84 11/06/16 00:00 97.0 91 18 127/79 98 Room Air 11/05/16 20:33 82 20 Room Air 11/05/16 20:00 97.4 86 22 125/78 99 Room Air 11/05/16 20:00 85 11/05/16 16:00 97.9 87 19 99/61 97 Room Air 11/05/16 16:00 85 11/05/16 12:00 98.2 95 17 115/91 97 Room Air 11/05/16 12:00 90 11/05/16 08:52 135/90 11/05/16 08:00 98.6 86 18 135/90 95 Room Air 11/05/16 08:00 125 Intake and Output 11/05/16 11/06/16 19:00 07:00 Intake Total 640 ml 380 ml Balance 640 ml 380 ml Intake Oral 640 ml 380 ml # Voids 3 2 Height (Feet): 5 Height (Inches): 5.00 Weight (Pounds): 200 Objective General Appearance: WD/WN, alert Neck: supple Cardiovascular: regular rhythm Respiratory/Chest: lungs clear, normal breath sounds, no respiratory distress Abdomen: normal bowel sounds, non tender, soft, no organomegaly Edema: no edema noted Arm (L), no edema noted Arm (R), no edema noted Leg (L), no edema noted Leg (R), no edema noted Pedal (L), no edema noted Pedal (R), no edema noted Generalized Neurologic: abnormal gait, 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
[2016-11-06] MEDS: BuPROPion XL 150mg tab ORAL SCH (08:56)
[2016-11-06] MEDS: Docusate 100mg cap ORAL SCH ×2 (08:56→17:07)
[2016-11-06] MEDS: Losartan 50mg tab ORAL SCH (08:58)
[2016-11-06] MEDS: Heparin 5000 units/ml inj SUBQ SCH ×2 (09:01→20:23)
--- NOTE | 2016-11-06 09:08 | Diagnostic Imaging Report ---
Indication: Headache Technique: CT maxillofacial was performed utilizing automated exposure control without intravenous contrast material. Axial and coronal images were generated. CT dose: Total DLP 567 mGycm; CTDI vol 28.2 mGy Comparison: None Findings: There is no acute fracture. Paranasal sinuses are clear without air-fluid levels. Bilateral ostiomeatal units are patent. There is a subtle defect of the right medial orbital wall series 4 image 17 probably an old injury. Orbits are otherwise grossly unremarkable. Mastoid air cells are clear. The mandible appears intact. Nasal bones are intact. Impression: No acute abnormality. Subtle defect of the right medial orbital wall probably an old injury. Clinical correlation recommended. The CT scanner at [facility] is accredited by the [employer] and the scans are performed using protocols designed to limit radiation exposure to as low as reasonably achievable to attain images of sufficient resolution adequate for diagnostic evaluation.
[2016-11-06] MEDS ORDERED: Milk of Magnesia 30ml Ud ORAL PRN (13:15)
[2016-11-06] MEDS ORDERED: Miralax 17gm pkt ORAL PRN (13:15)
[2016-11-06] MEDS ORDERED: Bisacodyl EC 5mg tab ORAL PRN (13:15)
--- NOTE | 2016-11-06 15:08 | Neurology Progress Note ---
Interim History Interim History ROS Limited/Unobtainable: No Complaints: feel better , MCPHERSON whenupright Events: stable CSF ok Objective Physical Exam Last Vital Signs Date Time Temp Pulse Resp B/P Pulse Ox O2 Delivery O2 Flow Rate FiO2 11/06/16 12:00 97.9 90 17 123/84 100 Room Air General: well developed, no acute distress, other - obese generalised tenderness Head: normocophalic, atraumatic Neck: other - sl rigid Neurologic Exam Mental Status: awake, alert, oriented x4, normal cognition, normal recent memory Speech: normal speech, no dysarthia Language: normal language, no aphasia Cranial Nerve II: fundus normal, visual baxter, no papilledema Cranial Nerves III, IV, : PERRLA, EOMI, pupils Cranial Nerve V: normal facial sensations, temporales function normal, masseters function normal, pterygoids function normal Cranial Nerve VII: no facial asymmetry, normal facial expressions Cranial Nerve VIII: normal hearing, no nystagmus Cranial Nerve IX: normal palate elevation, gag response Cranial Nerve X: no voice hoarseness Cranial Nerve XI: SCM symmetric, trapezii function normal Cranial Nerve XII: tongue midline, no tongue atrophy/fasciculations Motor System: no involuntary movement, no muscle wasting Sensory: normal pinprick Coordination: normal finger to nose bilaterally Deep Tendon Reflexes: 0 ankle (L), 0 ankle (R), 0 bicep (L), 0 bicep (R), 0 brachioradialis (L), 0 brachioradialis (R), 0 knee (L), 0 knee (R), 0 tricep (L) , 0 tricep (R) Reflexes: mute plantar (L), mute plantar (R) Impression/Recommendations Problems: (1) recurrentTIA like episodes.r/o INSULATION CUTTER sarcoidosis, r/o demyelination/MS (2) POST LP HEADACHE (3) chronic pain/fibromyalgia (4) Depression with anxiety Status: stable, progressing Recommendations #[id number] cont present rx post lp pain improving KATRIN ESTEVEZ Nov 06, 2016 15:08
--- NOTE | 2016-11-06 19:37 | Progress Note ---
DATE: 11/04/2016 CARDIOLOGY PROGRESS NOTE: SUBJECTIVE: The patient was seen and evaluated. She still has complaints of headache. She feels weak and numb on the left side. MRI was noted and concerned about demyelinating discussed. OBJECTIVE: VITAL SIGNS: Blood pressure 149/84, pulse 87, respiratory 20, and afebrile. NECK: Supple. LUNGS: Clear. CARDIAC: Regular. Normal S1, S2. There is a fourth heart sound. ABDOMEN: Soft. EXTREMITIES: Without edema. NEUROLOGIC: With no definite weakness noted. IMPRESSION: 1. Hypertensive heart disease. 2. Systemic sarcoidosis possible demyelination. 3. Transient ischemic attack and possible cerebrovascular accident. PLAN: 1. Continued anti-platelet therapy and statin therapy. 2. Lumbar puncture to be considered. 3. Await carotid duplex study. 4. Continue cardiac monitoring. Alphonse Washington M.D. DR: Elver JOB#: [id number] CC:
--- NOTE | 2016-11-06 19:48 | Progress Note ---
DATE: 11/05/2016 CARDIOLOGY PROGRESS NOTE: The patient complains of sinus headache now. No chest pain. OBJECTIVE: VITAL SIGNS: Blood pressure 115/91, pulse 95, and respiratory rate 17. NECK: Somewhat rigid, but supple. LUNGS: Clear. CARDIAC: Regular. No new murmur. ABDOMEN: Soft. EXTREMITIES: No edema. NEUROLOGIC: Deep tendon reflexes are diminished. No motor deficit noted. IMPRESSION: 1. Transient ischemic attack possible central nervous system. 2. Sarcoidosis rule out demyelination. 3. Status post lumbar puncture with headache possible sinusitis. 4. Chronic pain due to fibromyalgia . 5. Hypertensive heart disease with accelerated blood pressure. PLAN: 1. Follow up results of lumbar puncture. 2. Check sinus decongestant . 3. Titrate antihypertensives as needed. 4. Avoid tighter blood pressure control with risk for orthostasis. Alphonse Washington M.D. DR: Elver JOB#: [id number] CC:
[2016-11-07] VITALS: BP 118/72
[2016-11-07 04:00] VITALS: BP 132/93
--- NOTE | 2016-11-07 07:42 | General Progress Note ---
Assessment/Plan Problem List: (1) Facial pain ICD Codes: R51 - Headache SNOMED: 01953382 (2) facial numbness (3) TIA (transient ischemic attack) ICD Codes: G45.9 - TIA (transient ischemic attack) SNOMED: 886149344 (4) CVA (cerebral vascular accident) ICD Codes: I63.9 - Cerebral infarction, unspecified SNOMED: 826325457 (5) Sarcoidosis of lung ICD Codes: D86.0 - Sarcoidosis of lung SNOMED: 16624685 Status: stable, progressing Assessment/Plan antiplt rx with plavix statin rx follow up LP results follow up echo monitor arrythmia pt/ot/st as needed pain rx pt/ot eval to med surg Subjective ROS Limited/Unobtainable: No Constitutional: Reports: malaise, weakness HEENT: Reports: no symptoms Cardiovascular: Reports: no symptoms Respiratory: Reports: no symptoms Gastrointestinal/Abdominal: Reports: no symptoms Genitourinary: Reports: no symptoms Neurologic/Psychiatric: Reports: emotional problems, numbness, paresthesia, pre -existing deficit, tingling, weakness Endocrine: Reports: no symptoms Hematologic/Lymphatic: Reports: no symptoms Allergies: Coded Allergies: LISINOPRIL (Verified Allergy, Severe, Shortness of Breath, 07/02/13) coughing, vomiting SULFA (SULFONAMIDE ANTIBIOTICS) (Verified Allergy, Severe, Hives, 07/02/13) GABAPENTIN (Unverified Allergy, Unknown, 06/21/15) ACETAMINOPHEN (Verified Adverse Reaction, Intermediate, upset stomach, ) PREGABALIN (Verified Adverse Reaction, Intermediate, 07/04/13) PT STATES SHE GETS SWOLLEN All Systems: reviewed and negative except above Subjective no events. s/p LP. has mild MCPHERSON. no new weakness or numbness. csf studies still pending Objective Last 24 Hour Vital Signs Date Time Temp Pulse Resp B/P Pulse Ox O2 Delivery O2 Flow Rate FiO2 11/07/16 04:00 96 11/07/16 04:00 98.1 80 18 132/93 94 Room Air 11/07/16 00:00 98.2 88 20 118/72 97 Room Air 11/06/16 22:03 97.8 11/06/16 20:10 103 16 Room Air 11/06/16 20:00 97.8 85 20 125/79 95 Room Air 11/06/16 20:00 92 11/06/16 16:00 97.7 86 20 108/85 99 Room Air 11/06/16 12:00 89 11/06/16 12:00 97.9 90 17 123/84 100 Room Air 11/06/16 08:58 128/80 11/06/16 08:51 85 16 Room Air 11/06/16 08:00 96.9 59 17 138/99 100 Room Air 11/06/16 08:00 104 Intake and Output 11/06/16 11/07/16 19:00 07:00 Intake Total 680 ml 500 ml Balance 680 ml 500 ml Intake Oral 680 ml 500 ml # Voids 4 # Bowel Movements 1 Height (Feet): 5 Height (Inches): 5.00 Weight (Pounds): 200 Objective General Appearance: WD/WN, alert Neck: supple Cardiovascular: regular rhythm Respiratory/Chest: lungs clear, normal breath sounds, no respiratory distress Abdomen: normal bowel sounds, non tender, soft, no organomegaly Edema: no edema noted Arm (L), no edema noted Arm (R), no edema noted Leg (L), no edema noted Leg (R), no edema noted Pedal (L), no edema noted Pedal (R), no edema noted Generalized Neurologic: abnormal gait, abnormal supervisor dry paste II-XII, sensory deficit Skin: normal pigmentation NAVJOT RAMSAY Nov 07, 2016 07:42
[2016-11-07 08:00] VITALS: BP 119/81
[2016-11-07] MEDS: Norco 10mg/325mg tab ORAL PRN ×2 (08:04→19:56)
[2016-11-07] MEDS: BuPROPion XL 150mg tab ORAL SCH (08:47)
[2016-11-07] MEDS: Docusate 100mg cap ORAL SCH ×2 (08:48→18:28)
[2016-11-07] MEDS: Losartan 50mg tab ORAL SCH (08:48)
[2016-11-07] MEDS: Heparin 5000 units/ml inj SUBQ SCH ×2 (08:50→21:00)
[2016-11-07 12:00] VITALS: BP 114/71
[2016-11-07] MEDS: Morphine Sulfate 2mg/ml Inj IVP PRN ×2 (12:20→17:32)
[2016-11-07 16:00] VITALS: BP 122/72
[2016-11-07 20:00] VITALS: BP 105/64
[2016-11-07] MEDS ORDERED: LORazepam Inj 2mg/ml 1ml IV PRN (23:15)
[2016-11-08] VITALS: BP 115/76
--- NOTE | 2016-11-08 00:08 | Progress Note ---
DATE: 11/06/2016 SUBJECTIVE: The patient has continued complaints of headache. She is following since her lumbar puncture. She still has same numbness on the left side. OBJECTIVE: VITAL SIGNS: Blood pressure 131/77, pulse 94, and respiratory rate 18. NECK: Supple. LUNGS: Clear. CARDIAC: Regular. Normal S1 and S2. ABDOMEN: Soft. EXTREMITIES: No edema. LABORATORY DATA: CT scan of the maxillofacial region reveals no acute process. IMPRESSION: 1. Transient ischemic attack. 2. Systemic sarcoidosis. 3. Hypertensive cardiomyopathy. 4. Possible demyelination syndrome. PLAN: Follow up results of lumbar puncture and CSF fluid studies. Continue current antihypertensives with titration based on clinical parameters and cautiously monitoring for secondary orthostatic changes. Alphonse Washington M.D. DR: ISAMAR JOB#: [id number] CC:
[2016-11-08] MEDS: Morphine Sulfate 2mg/ml Inj IVP PRN ×2 (01:17→08:24)
--- NOTE | 2016-11-08 01:57 | Progress Note ---
DATE: 11/07/2016 CARDIOLOGY PROGRESS NOTE SUBJECTIVE: Monitored rhythm, sinus. No ectopy. Blood pressure range improved, now 132/93, earlier 118/72, heart rate 88, and respiratory rate 20. The patient without new complaint. CSF studies are still pending. The patient's headache is controlled with current medications. OBJECTIVE: NECK: Supple. LUNGS: Clear. CARDIAC: Regular. Normal S1, S2 with a fourth heart sound. ABDOMEN: Soft. EXTREMITIES: No edema. IMPRESSION: Stable with status post transient ischemic attack, systemic sarcoid, hypertensive cardiomyopathy, and possible demyelination syndrome. PLAN: Continue statin drug and antiplatelet therapy with Plavix. Continue current antihypertensives and titrate as needed. Await CSF studies. Mobilize. Discontinue telemetry. Alphonse Washington M.D. DR: TAYLOR JOB#: [id number] CC:
[2016-11-08] MEDS: Norco 10mg/325mg tab ORAL PRN ×2 (03:43→12:34)
[2016-11-08 04:00] VITALS: BP 118/68
--- NOTE | 2016-11-08 05:55 | General Progress Note ---
Assessment/Plan Problem List: (1) Facial pain ICD Codes: R51 - Headache SNOMED: 23168317 (2) facial numbness (3) TIA (transient ischemic attack) ICD Codes: G45.9 - TIA (transient ischemic attack) SNOMED: 034487460 (4) CVA (cerebral vascular accident) ICD Codes: I63.9 - Cerebral infarction, unspecified SNOMED: 220346248 (5) Sarcoidosis of lung ICD Codes: D86.0 - Sarcoidosis of lung SNOMED: 07637739 Status: stable, progressing Assessment/Plan antiplt rx with plavix statin rx follow up LP results follow up echo monitor arrythmia pt/ot/st as needed pain rx pt/ot eval decongestants ordered to med surg Subjective ROS Limited/Unobtainable: No Constitutional: Reports: malaise, weakness HEENT: Reports: nose congestion Cardiovascular: Reports: no symptoms Respiratory: Reports: cough Gastrointestinal/Abdominal: Reports: no symptoms Genitourinary: Reports: no symptoms Neurologic/Psychiatric: Reports: depressed, emotional problems, pre-existing deficit, tingling, weakness Endocrine: Reports: no symptoms Hematologic/Lymphatic: Reports: no symptoms Allergies: Coded Allergies: LISINOPRIL (Verified Allergy, Severe, Shortness of Breath, 07/02/13) coughing, vomiting SULFA (SULFONAMIDE ANTIBIOTICS) (Verified Allergy, Severe, Hives, 07/02/13) GABAPENTIN (Unverified Allergy, Unknown, 06/21/15) ACETAMINOPHEN (Verified Adverse Reaction, Intermediate, upset stomach, ) PREGABALIN (Verified Adverse Reaction, Intermediate, 07/04/13) PT STATES SHE GETS SWOLLEN All Systems: reviewed and negative except above Subjective no events. s/p LP. has mild MCPHERSON and nasal congestion. no new weakness or numbness. csf studies still pending. stable for snf Objective Last 24 Hour Vital Signs Date Time Temp Pulse Resp B/P Pulse Ox O2 Delivery O2 Flow Rate FiO2 11/08/16 04:42 98.8 11/08/16 04:00 97.7 82 20 118/68 97 Room Air 11/08/16 01:47 98.8 11/08/16 00:00 98.8 86 20 115/76 96 Room Air 11/07/16 20:00 86 18 Room Air 11/07/16 20:00 96.8 85 16 105/64 99 Room Air 11/07/16 16:00 97.7 86 15 122/72 97 Nasal Cannula 11/07/16 12:50 98.1 11/07/16 12:00 97.7 97 18 114/71 95 Room Air 11/07/16 12:00 85 11/07/16 10:10 89 16 Room Air 11/07/16 09:03 98.1 11/07/16 09:03 98.1 11/07/16 08:48 119/82 11/07/16 08:00 98.1 97 17 119/81 95 Room Air 11/07/16 08:00 96 Intake and Output 11/07/16 11/08/16 19:00 07:00 Intake Total 1110 ml Balance 1110 ml Intake Oral 1110 ml # Voids 5 2 # Bowel Movements 2 Height (Feet): 5 Height (Inches): 5.00 Weight (Pounds): 200 Objective General Appearance: WD/WN, alert Neck: supple Cardiovascular: regular rhythm Respiratory/Chest: lungs clear, normal breath sounds, no respiratory distress Abdomen: normal bowel sounds, non tender, soft, no organomegaly Edema: no edema noted Arm (L), no edema noted Arm (R), no edema noted Leg (L), no edema noted Leg (R), no edema noted Pedal (L), no edema noted Pedal (R), no edema noted Generalized Neurologic: abnormal gait, abnormal faceter II-XII, sensory deficit Skin: normal pigmentation NAVJOT RAMSAY Nov 08, 2016 05:55
[2016-11-08] MEDS: Flonase Nasal Inhaler 16gm NASAL SCH ×2 (06:00→09:11)
[2016-11-08] MEDS ORDERED: Pseudoephedrine 30mg tab ORAL PRN (06:00)
[2016-11-08 08:00] VITALS: BP 110/67
[2016-11-08] MEDS ORDERED: Docusate 100mg cap ORAL SCH (09:00)
[2016-11-08] MEDS ORDERED: Losartan 50mg tab ORAL SCH (09:00)
[2016-11-08] MEDS ORDERED: Heparin 5000 units/ml inj SUBQ SCH (09:00)
[2016-11-08] MEDS ORDERED: Miralax 17gm pkt ORAL PRN (09:00)
[2016-11-08] MEDS ORDERED: BuPROPion XL 150mg tab ORAL SCH (09:00)
[2016-11-08 12:00] VITALS: BP 117/84
[2016-11-08] MEDS ORDERED: Bisacodyl EC 5mg tab ORAL PRN (13:15)
[2016-11-08] MEDS ORDERED: Milk of Magnesia 30ml Ud ORAL PRN (13:15)
--- NOTE | 2016-11-09 04:48 | Progress Note ---
DATE: 11/08/2016 CARDIOLOGY PROGRESS NOTE SUBJECTIVE: The patient's blood pressure is well controlled now. Blood pressure 118/68, heart rate 82, and respiratory rate 20. She is afebrile. Room air oxygen saturation is 97%. Headache has improved. She has not had any arrhythmias noted on cardiac monitoring. She has still some numbness on her left side. LP results are still pending. OBJECTIVE: NECK: Supple. LUNGS: Clear. CARDIAC: Regular. Normal S1 and S2. ABDOMEN: Soft. No edema. EXTREMITIES: Strength is symmetric. IMPRESSION: 1. Systemic sarcoidosis. 2. Possible subcortical cerebrovascular accident. 3. Hypertensive heart disease. 4. Hyperlipidemia. PLAN: 1. Stable for group home care. 2. Follow up LP results available. 3. Continue anti-lipid and anti-platelet therapy for now. 4. Maintain current antihypertensives. Alphonse Washington M.D. DR: ROBI JOB#: [id number] CC:
[2016-11-09 09:16] LABS: ANGIOTENSIN CONVERTING ENZYME 19 U/L (14-82); VDRL CSF Non Reactive (Non Rea:<1:1)
--- NOTE | 2016-11-10 16:02 | Discharge Summary ---
Discharge Summary Hospital Course Date of Admission Nov 02, 2016 at 11:30 Date of Discharge Nov 08, 2016 at 15:30 Admitting Diagnosis left sided weakness, cva HPI Love Taylor is a 46 year old female who was admitted on Nov 02, 2016 at 11:30 for Left Side Weakness,Cva Hospital Course [id number] Discharge Discharge Disposition Patient was discharged to SNF/Subacute Facility(03) Discharge Diagnoses: Candida Hebert NP Nov 10, 2016 16:02
--- NOTE | 2016-11-11 11:08 | Discharge Summary 2 SIG ---
DATE OF ADMISSION: 11/02/2016 DATE OF DISCHARGE: 11/08/2016 CONSULTANTS: 1. Alphonse Washington M.D. 2. Thom Mackey M.D. BRIEF HOSPITAL COURSE: The patient is a 46-year-old female with history of sarcoidosis, prior history of stroke, hypertension, asthma, and fibromyalgia, presented to emergency room with complaints of left-sided weakness and numbness that started on day of admission. According to the patient, she was well until the day of admission when she woke up feeling weak on the left side and also noted numbness. She had a prior history of stroke and is on Plavix. CT scan of the head was negative for acute stroke. Dr. Mackey was consulted. MRI of the brain without contrast revealed few scattered periventricular subcortical hyperintense foci. Imaging was compared with prior study from 07/02/2013. Some of the lesions were present previously. Findings were suspicious for demyelinating disease. There was no mass effect and no edema. The patient was given aspirin and statins. Dr. Washington was also consulted. Outpatient echocardiogram revealed normal ejection fraction with concentric hypertrophy and no significant valvular disease or pulmonary hypertension. Carotid duplex scan showed no significant plaques within the right and left extracranial carotid arteries. Vertebral arteries are within normal limits. She underwent lumbar puncture on 11/04/2016. Opening pressures were within normal limits. She was given physical therapy, occupational therapy, and speech therapy. The patient was eventually discharged to SNF. FINAL DIAGNOSES: 3. Recurrent transient ischemic attack like episodes. 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 4. Possible subcortical cerebrovascular accident. 5. Hypertensive heart disease. 6. Hyperlipidemia. 7. Sarcoidosis. 8. Facial pain. 9. Chronic pain due to fibromyalgia. 10. Status post lumbar puncture headache. 11. Depression with anxiety. NAVJOT RAMSAY M.D. I have been assigned to dictate discharge summary on this account and I was not involved in the patient's management. Candida Hebert NLyndsey DR: JIMMY JOB#: [id number] CC: YASSINE
--- NOTE | 2016-11-15 08:49 | Cardiology Report ---
APPROVED REPORT EXAM: Two-dimensional and M-mode echocardiogram with Doppler and color Doppler. INDICATION CVA/TIA M-Mode DIMENSIONS IVSd1.4 (0.7-1.1cm)Left Atrium (MM)3.5 (1.6-4.0cm) LVDd4.6 (3.5-5.6cm)Aortic Root3.0 (2.0-3.7cm) PWd1.4 (0.7-1.1cm)Aortic Cusp Exc.1.9 (1.5-2.0cm) LVDs2.7 (2.5-4.0cm) PWs1.4 cm Normal left ventricular chamber size, systolic function and wall motion. Left ventricular ejection fraction estimated to be 60-65 %. Mild left ventricular hypertrophy. Anterior Echo-free space, may be due to pericardial fat or effusion. Left atrial size at upper limits of normal. Right cardiac chamber sizes are within normal limits. Mild focal aortic valve sclerosis with adequate cusp excursion. Mildly thickened mitral valve leaflets with normal excursion. Mild mitral annulus and aortic root calcification. Pulmonic valve not well visualized. Normal tricuspid valve structure. IVC at normal size with physiologic collapse. A color flow and spectral Doppler study was performed and revealed: Trace aortic regurgitation. Mild mitral regurgitation. Mitral inflow indicates normal left ventricular diastolic function. Trace to mild tricuspid regurgitation. Tricuspid systolic velocities suggests peak right ventricular systolic pressure of 33 mmHg. Trace pulmonic regurgitation present.
--- NOTE | 2016-12-14 23:56 | Cardiology Report ---
APPROVED REPORT EKG Measurement Heart [id number] Normal sinus rhythm Normal ECG
== END 2016-11-08 15:30 | DRG 69 ==
LOC: ENRESERV → ENRESERVDT → ENRESERVTM → EMR 11:05 → 2E 11:30 → EDBEDREQ 11:39 → 2E 23:46 → 4E 11-07 23:22
PROC: 009U3ZX Drainage of Spinal Canal, Percutaneous Approach, Diagnostic (ICD-10-PCS; principal; 2016-11-04)
DX: G45.8 Other transient cerebral ischemic attacks and related syndromes (principal); I63.8 Other cerebral infarction; G37.8 Other specified demyelinating diseases of central nervous system; E11.8 Type 2 diabetes mellitus with unspecified complications; D86.89 Sarcoidosis of other sites; I42.9 Cardiomyopathy, unspecified; I69.954 Hemiplegia and hemiparesis following unspecified cerebrovascular disease affecting left non-dominant side; E66.01 Morbid (severe) obesity due to excess calories; I11.9 Hypertensive heart disease without heart failure; E78.5 Hyperlipidemia, unspecified; M79.7 Fibromyalgia; N60.19 Diffuse cystic mastopathy of unspecified breast; Z86.73 Personal history of transient ischemic attack (TIA), and cerebral infarction without residual deficits; J45.909 Unspecified asthma, uncomplicated; R51 Headache; F41.8 Other specified anxiety disorders; G89.4 Chronic pain syndrome; Z88.6 Allergy status to analgesic agent; Z88.2 Allergy status to sulfonamides; Z88.8 Allergy status to other drugs, medicaments and biological substances; R20.0 Anesthesia of skin; G97.1 Other reaction to spinal and lumbar puncture; Y84.4 Aspiration of fluid as the cause of abnormal reaction of the patient, or of later complication, without mention of misadventure at the time of the procedure; Z79.02 Long term (current) use of antithrombotics/antiplatelets
CPT/HCPCS: 36415; 70450; 70486; 70551; 70552; 71010; 80053; 80061; 82164; 82550; 82553; 82945; 83873; 83916; 84157; 84484; 85025; 85610; 85730; 86592; 89051; 93005; 93306; 93880; 94664; A9585

== ENCOUNTER 2016-12-28 10:42 | Inpatient (IN) | payer MEDICARE, OTHER ==
[~2016-12-28] VITALS: Ht 162.6 cm; Wt 113.4 kg
[2016-12-28 11:10] VITALS: BP 126/89
[2016-12-28 11:16] LABS: BASOPHILS % (AUTO) 1.5 % (0.0-2.0); EOSINOPHILS % (AUTO) 0.1 % (0.0-3.0); LYMPHOCYTES % (AUTO) 43.2 % (20.0-45.0); MEAN CORPUSCULAR HEMOGLOBIN 31.2 PG (27.0-31.0); MEAN CORPUSCULAR HGB CONC 33.1 G/DL (32.0-36.0); MEAN CORPUSCULAR VOLUME 94 FL (80-99); MEAN PLATELET VOLUME 5.9 FL (6.5-10.1); MONOCYTES % (AUTO) 10.4 % (1.0-10.0); NEUTROPHILS % (AUTO) 44.9 % (45.0-75.0); PLATELET COUNT 281 K/UL (150-450); RED CELL DISTRIBUTION WIDTH 12.9 % (11.6-14.8); WHITE BLOOD COUNT 5.5 K/UL (4.8-10.8)
[2016-12-28 11:25] LABS: PROTHROMBIN TIME 9.7 SEC (9.30-11.50)
[2016-12-28 11:30] LABS: ALANINE AMINOTRANSFERASE 36 U/L (3-33); ALBUMIN/GLOBULIN RATIO 1.5 (1.0-2.7); ANION GAP 17 (5-15); ASPARTATE AMINO TRANSFERASE 21 U/L (5-40); CALCIUM 9.9 mg/dL (8.6-10.2); CARBON DIOXIDE 23 mEQ/L (20-30); CHLORIDE 100 mEQ/L (98-107); CHOLESTEROL 260 mg/dL (< 200); CHOLESTEROL/HDL RATIO 3.9 (3.3-4.4); CREATININE 0.8 mg/dL (0.5-0.9); GLOMERULAR FILTRATION RATE > 60 mL/min (>60); HEMOLYSIS 9; LDL CHOLESTEROL (CALC.) 149 mg/dL (60-99); POTASSIUM 4.2 mEQ/L (3.4-4.9); SODIUM 140 mEQ/L (135-145); TOTAL PROTEIN 7.8 g/dL (6.6-8.7); TROPONIN I < 0.30 ng/mL (<=0.30)
--- NOTE | 2016-12-28 11:46 | Diagnostic Imaging Report ---
Indication: Altered mental status Technique: Continuous helical CT scanning of the head was performed without intravenous contrast material. Axial and coronal 5 mm sections were generated. Radiation dose was minimized using automated exposure control Dose: Total Dose Length Product - DLP [address] Dose Index - CTDIvol(s) 70.38 mGy. Comparison: 11/02/2016 Findings: The ventricular system is normal in size and configuration. There is no shift of midline structures. No abnormal extra-axial fluid collections are noted. There is no evidence of intracerebral bleeding. No other abnormal high or low density areas are noted within the brain. The orbits and sinuses are unremarkable. No significant or change Impression: Normal CT scan of the head without contrast material. The CT scanner at [facility] is accredited by the [employer] and the scans are performed using protocols designed to limit radiation exposure to as low as reasonably achievable to attain images of sufficient resolution adequate for diagnostic evaluation.
[2016-12-28 12:00] VITALS: BP 133/83
[2016-12-28 12:25] LABS: APPEARANCE,URINE SLIGHTLY CLOUDY; KETONES,URINE NEGATIVE (NEGATIVE); LEUKOCYTE ESTERASE ,URINE 1+ (NEGATIVE); NITRITE,URINE NEGATIVE (NEGATIVE); PH,URINE 6 (4.5-8.0); PROTEIN,URINE NEGATIVE (NEGATIVE); UROBILINOGEN,URINE NORMAL MG/DL (0.0-1.0)
[2016-12-28] MEDS ORDERED: Morphine Sulfate 4mg/ml Inj IVP ONE (12:30)
[2016-12-28 12:36] LABS: BACTERIA,URINE FEW /HPF; RBC,URINE 0-2 /HPF (0 - 2); SQUAMOUS EPITHELIAL CELL,UR FEW /LPF (NONE/OCC)
[2016-12-28] MEDS ORDERED: ASPIR 8181 MG ORAL (12:43)
[2016-12-28] MEDS ORDERED: HYDROmorphone 1mg/ml Carpuject IVP PRN (14:15)
[2016-12-28] MEDS ORDERED: HYDROmorphone 1mg/ml Carpuject ONE (15:12)
[2016-12-28 15:15] VITALS: BP 120/75
--- NOTE | 2016-12-28 17:17 | Emergency Room Report ---
History of Present Illness General Chief Complaint: Stroke Symptoms Source: Patient, Medical Record, PMD Present Illness HPI This patient presents with a history of known a CVA and sarcoidosis. She has had slurring of her speech. She also feels weaker than usual in the right side of her body. She has had ongoing issues with her sarcoidosis. She was sent him by her primary care physician for concerned of TIA/CVA. She denies recent illness. She denies fever or chills. She denies cough or congestion. She denies chest pain or shortness of breath. She denies abdominal pain. She has no other complaints. Allergies: Coded Allergies: LISINOPRIL (Verified Allergy, Severe, Shortness of Breath, 07/02/13) coughing, vomiting SULFA (SULFONAMIDE ANTIBIOTICS) (Verified Allergy, Severe, Hives, 07/02/13) GABAPENTIN (Unverified Allergy, Unknown, 06/21/15) ACETAMINOPHEN (Verified Adverse Reaction, Intermediate, upset stomach, ) PREGABALIN (Verified Adverse Reaction, Intermediate, 07/04/13) PT STATES SHE GETS SWOLLEN Patient History Past Medical History: see triage record, old chart reviewed, DM, HTN, asthma, COPD, CVA/TIA, renal disease, other - sarcoidosis Social History: Denies: alcohol use, drug use, smoking Reviewed Nursing Documentation: PMH: Agreed, PSxH: Agreed Nursing Documentation-PMH Past Medical History: No History, Except For Hx Hypertension: Yes Hx Pacemaker: No Hx Asthma: Yes - sarcoidosis, fibromyalgia Hx COPD: Yes Hx Diabetes: Yes Hx Cancer: Yes Hx Gastrointestinal Problems: No Hx Dialysis: No Hx Neurological Problems: Yes Hx Cerebrovascular Accident: Yes - 2010 Hx Seizures: No Hx Dysphasia: Yes Hx Numbness: Yes - Right sided numbness Hx Weakness: Yes - Generalized weakness Review of Systems All Other Systems: negative except mentioned in HPI Physical Exam Vital Signs Date Time Temp Pulse Resp B/P Pulse Ox O2 Delivery O2 Flow Rate FiO2 12/28/16 10:54 98.2 100 19 156/107 100 Room Air Sp02 EP Interpretation: reviewed, normal General Appearance: no apparent distress, alert, GCS 15, non-toxic Head: normocephalic, atraumatic ENT: hearing grossly normal, normal pharynx, no angioedema, normal voice Neck: full range of motion, supple/symm/no masses Respiratory: chest non-tender, lungs clear, normal breath sounds, speaking full sentences Cardiovascular #1: regular rate, rhythm, no edema Gastrointestinal: normal bowel sounds, non tender, soft, non-distended, no guarding, no rebound Rectal: deferred Musculoskeletal: normal range of motion Neurologic: alert, oriented x3, responsive, sensory intact, other - Slurred speech. Weakness RUE Psychiatric: judgement/insight normal, memory normal, mood/affect normal, no suicidal/homicidal ideation, anxious Skin: normal color, no rash, warm/dry, well hydrated Medical Decision Making Diagnostic Impression: Primary Impression: Stroke-like symptoms Additional Impression: recurrentTIA like episodes.r/o [employer] SAL[employer]OCIATE sarcoidosis, r/o demyelination/MS ER Course This patient has a history of CVA and recurrent episodes of symptoms that are consistent with TIA. She's been worked up multiple times and has not been identified to have a new CVA. However, she does have active sarcoidosis. She has slurred speech and worsening of her baseline weakness. CT of the head was obtained and negative. I attempted to obtain an MRI that the MRI had to be stopped secondary to the patient having shocklike sensations during the MRI. The patient is admitted for further evaluation and treatment. Labs Test 12/28/16 11:10 White Blood Count 5.5 K/UL (4.8-10.8) Red Blood Count 4.60 M/UL (4.20-5.40) Hemoglobin 14.4 G/DL (12.0-16.0) Hematocrit 43.4 % (37.0-47.0) Mean Corpuscular Volume 94 FL (80-99) Mean Corpuscular Hemoglobin 31.2 PG (27.0-31.0) Mean Corpuscular Hemoglobin Concent 33.1 G/DL (32.0-36.0) Red Cell Distribution Width 12.9 % (11.6-14.8) Platelet Count 281 K/UL (150-450) Mean Platelet Volume 5.9 FL (6.5-10.1) Neutrophils (%) (Auto) 44.9 % (45.0-75.0) Lymphocytes (%) (Auto) 43.2 % (20.0-45.0) Monocytes (%) (Auto) 10.4 % (1.0-10.0) Eosinophils (%) (Auto) 0.1 % (0.0-3.0) Basophils (%) (Auto) 1.5 % (0.0-2.0) Prothrombin Time 9.7 SEC (9.30-11.50) Prothromb Time International Ratio 1.0 (0.9-1.1) Activated Partial Thromboplast Time 25 SEC (23-33) Urine Color Pale yellow Urine Appearance Slightly cloudy Urine pH 6 (4.5-8.0) Urine Specific [place] 1.025 (1.005-1.035) Urine Protein Negative (NEGATIVE) Urine Glucose (UA) Negative (NEGATIVE) Urine Ketones Negative (NEGATIVE) Urine Occult Blood Negative (NEGATIVE) Urine Nitrite Negative (NEGATIVE) Urine Bilirubin Negative (NEGATIVE) Urine Urobilinogen Normal MG/DL (0.0-1.0) Urine Leukocyte Esterase 1+ (NEGATIVE) Urine RBC 0-2 /HPF (0 - 2) Urine WBC 2-4 /HPF (0 - 2) Urine Squamous Epithelial Cells Few /LPF (NONE/OCC) Urine Bacteria Few /HPF (NONE) Sodium Level 140 mEQ/L (135-145) Potassium Level 4.2 mEQ/L (3.4-4.9) Chloride Level 100 mEQ/L (98-107) Carbon Dioxide Level 23 mEQ/L (20-30) Anion Gap 17 (5-15) Blood Urea Nitrogen 19 mg/dL (7-23) Creatinine 0.8 mg/dL (0.5-0.9) Estimat Glomerular Filtration Rate > 60 mL/min (>60) Glucose Level 139 mg/dL (74-106) Calcium Level 9.9 mg/dL (8.6-10.2) Total Bilirubin 0.2 mg/dL (0.0-1.2) Aspartate Amino Transf (AST/SGOT) 21 U/L (5-40) Alanine Aminotransferase (ALT/SGPT) 36 U/L (3-33) Alkaline Phosphatase 85 U/L (35-104) Troponin I < 0.30 ng/mL (<=0.30) C-Reactive Protein, Quantitative < 0.3 mg/dL (< 0.5) Total Protein 7.8 g/dL (6.6-8.7) Albumin 4.7 g/dL (3.5-5.2) Globulin 3.1 g/dL Albumin/Globulin Ratio 1.5 (1.0-2.7) Triglycerides Level 226 mg/dL (< 150) Cholesterol Level 260 mg/dL (< 200) LDL Cholesterol 149 mg/dL (60-99) HDL Cholesterol 66 mg/dL (> 60) Cholesterol/HDL Ratio 3.9 (3.3-4.4) EKG Diagnostic Results Rate: normal Rhythm: NSR ST Segments: no acute changes Rhythm Strip Diag. Results EP Interpretation: yes Rate: 90s Rhythm: NSR, no PVC's, no ectopy CT/MRI/US Diagnostic Results CT/MRI/US Diagnostic Results : Imaging Test Ordered: CT head Impression No acute findings. MRI brain: unable to obtain. Last Vital Signs Date Time Temp Pulse Resp B/P Pulse Ox O2 Delivery O2 Flow Rate FiO2 12/28/16 15:33 98.2 12/28/16 15:15 98 17 120/75 98 Room Air Disposition: ADMITTED INPATIENT Condition: Serious Referrals: NAVJOT RAMSAY (PCP) AMANDA TRAYLOR D.O. Dec 28, 2016 17:17
[2016-12-28 17:35] VITALS: BP 115/66
[2016-12-28 19:33] VITALS: BP 129/78
[2016-12-28] MEDS: Heparin 5000 units/ml inj SUBQ SCH (21:29)
[2016-12-28] MEDS: Docusate 250mg cap ORAL SCH (21:29)
[2016-12-28] MEDS: HYDROmorphone 1mg/ml Carpuject IVP PRN (22:35)
[2016-12-28] MEDS: Pred Forte 1% Opth Susp 1ml BOTH EYES SCH (22:36)
[2016-12-28] MEDS: Artificial Tears 1.4% Op Soln BOTH EYES PRN (22:36)
[2016-12-29] VITALS: BP 139/90
[2016-12-29] MEDS: Pred Forte 1% Opth Susp 1ml BOTH EYES SCH ×6 (00:30→20:44)
[2016-12-29] MEDS: HYDROmorphone 1mg/ml Carpuject IVP PRN ×5 (02:40→22:08)
[2016-12-29 04:11] VITALS: BP 135/95
[2016-12-29 07:54] VITALS: BP 138/91
--- NOTE | 2016-12-29 08:09 | History and Physical Report ---
DATE OF ADMISSION: 12/28/2016 CHIEF COMPLAINT: Possible stroke versus transient ischemic attack. HISTORY OF PRESENT ILLNESS: The patient is a very unfortunate 46-year-old female. She has a history of severe sarcoidosis, hypertension, and asthma. She has a history of fibromyalgia and chronic lower back pain, who was actually downtown at the when she became dysarthric. I was contacted by her [employer] manager who put her on the phone, the patient was slurring her words. I saw the patient several days ago and she was fine and the unix manager confirmed that he had seen her just the day prior and she was also speaking normally. She was transferred to the emergency room for further evaluation. On evaluation here, the patient's speech did improve, she was no longer dysarthric, but she was tearful and anxious. She complained of severe pain in the back. She denies any recent trauma. No fevers or chills. No chest pain. No shortness of breath. Head CT initially in the emergency room was unremarkable in light of prior history of stroke. She is now admitted for further evaluation and care. PAST MEDICAL HISTORY: As above. 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 MEDICATIONS: The patient's medications reconciled and reviewed. ALLERGIES: Include acetaminophen, gabapentin, lisinopril, Lyrica, and sulfa. FAMILY HISTORY: Noncontributory. SOCIAL HISTORY: Negative for tobacco, ethanol, or drugs. REVIEW OF SYSTEMS: General: No fevers or chills. HEENT: Positive headaches, but no visual changes. Cardiopulmonary: No chest pain or shortness of breath. Gastrointestinal: No nausea or vomiting. Genitourinary: No urgency or frequency. Musculoskeletal: No joint pain or swelling. Neurologic: No evidence of seizures. Positive history of stroke in the past. PHYSICAL EXAMINATION: VITAL SIGNS: Temperature was 98.2, blood pressure 133/83, pulse 83, and respirations 18. GENERAL: The patient is in no apparent distress. HEART: Regular rate and rhythm. LUNGS: Lungs are clear. ABDOMEN: Soft, nontender, and nondistended. EXTREMITIES: Without clubbing, cyanosis, or edema. Cranial nerves II through XII are intact. The patient's speech is slightly slurred compared to baseline. It is improved compared to when I spoke with the patient on the phone earlier in the morning. Motor strength is 5/5 bilaterally. Sensation is intact bilaterally. Reflexes are 2+ throughout. LABORATORY DATA: White count was 5, hemoglobin 14, hematocrit 43, and platelets of 281,000. Sodium 140, potassium 4.2. Troponin is 0.3. LDL was 149. Urine was clear. ASSESSMENT: This is a pleasant female admitted with complaints of: 1. Dysarthria of unclear etiology, rule out stroke. 2. History of sarcoidosis. 3. Hypertension. 4. Asthma. 5. History of fibromyalgia. 6. Chronic pain. PLAN: Admit to monitored bed. We will continue aspirin/antiplatelet therapy. Pain medications as needed. MRI of the brain with contrast. Neurology consultation has been obtained. We will continue outpatient cardiac and asthma regimen. Jeremias Altamirano M.D. DR: KATHERYN JOB#: [id number] CC:
--- NOTE | 2016-12-29 08:28 | General Progress Note ---
Assessment/Plan Problem List: (1) Back pain ICD Codes: M54.9 - Back pain SNOMED: 723979410 (2) Intractable back pain ICD Codes: M54.9 - Intractable back pain SNOMED: 126492915 (3) Facial pain ICD Codes: R51 - Headache SNOMED: 43901371 (4) Facial pain ICD Codes: R51 - Headache SNOMED: 06792756 (5) Sarcoidosis of lung ICD Codes: D86.0 - Sarcoidosis of lung SNOMED: 19490206 (6) Depression with anxiety ICD Codes: F41.8 - Other specified anxiety disorders SNOMED: 501250192 (7) chronic pain/fibromyalgia (8) recurrentTIA like episodes.r/o [employer]ER sarcoidosis, r/o demyelination/MS (9) Dysarthria (10) Stroke-like symptoms ICD Codes: R29.90 - Unspecified symptoms and signs involving the nervous system SNOMED: 908759455 Status: stable, progressing Assessment/Plan reattempt MRI with contrast hydrate with ivf pain rx anxiolytics consider psych eval Subjective ROS Limited/Unobtainable: No Constitutional: Reports: malaise, weakness HEENT: Reports: no symptoms Cardiovascular: Reports: no symptoms Respiratory: Reports: cough Gastrointestinal/Abdominal: Reports: no symptoms Genitourinary: Reports: no symptoms Neurologic/Psychiatric: Reports: pre-existing deficit Endocrine: Reports: no symptoms Hematologic/Lymphatic: Reports: no symptoms Allergies: Coded Allergies: LISINOPRIL (Verified Allergy, Severe, Shortness of Breath, 07/02/13) coughing, vomiting SULFA (SULFONAMIDE ANTIBIOTICS) (Verified Allergy, Severe, Hives, 07/02/13) GABAPENTIN (Unverified Allergy, Unknown, 06/21/15) ACETAMINOPHEN (Verified Adverse Reaction, Intermediate, upset stomach, ) PREGABALIN (Verified Adverse Reaction, Intermediate, 07/04/13) PT STATES SHE GETS SWOLLEN All Systems: reviewed and negative except above Subjective no events. ?slight slurring. stuttering speech. denies weakness. c/o generalized pain. very anxious. neuro eval called yesterday. still pending. MRI attempted yesterday but pt moved too much Objective Last 24 Hour Vital Signs Date Time Temp Pulse Resp B/P Pulse Ox O2 Delivery O2 Flow Rate FiO2 12/29/16 07:54 98.2 98 18 138/91 95 Room Air 12/29/16 06:00 89 12/29/16 04:11 98.7 79 18 135/95 97 Room Air 12/29/16 00:00 97.8 79 19 139/90 99 Room Air 12/29/16 00:00 98 12/28/16 19:33 98.3 98 22 129/78 99 Room Air 12/28/16 19:32 98 22 129/78 99 Room Air 12/28/16 17:35 98.2 100 21 115/66 96 Room Air 12/28/16 15:33 98.2 12/28/16 15:15 98.3 98 17 120/75 98 Room Air 12/28/16 13:15 98.2 12/28/16 12:00 83 18 133/83 99 Room Air 12/28/16 11:10 99 18 126/89 100 Room Air 12/28/16 10:54 98.2 100 19 156/107 100 Room Air Intake and Output 12/28/16 12/29/16 19:00 07:00 Intake Total 0 ml 20 ml Balance 0 ml 20 ml Intake Oral 0 ml 20 ml # Voids 1 # Bowel Movements 2 Laboratory Tests 12/28/16 11:10: White Blood Count 5.5, Red Blood Count 4.60, Hemoglobin 14.4, Hematocrit 43.4, Mean Corpuscular Volume 94, Mean Corpuscular Hemoglobin 31.2H, Mean Corpuscular Hemoglobin Concent 33.1, Red Cell Distribution Width 12.9, Platelet Count 281, Mean Platelet Volume 5.9L, Neutrophils (%) (Auto) 44.9L, Lymphocytes (%) (Auto) 43.2, Monocytes (%) (Auto) 10.4H, Eosinophils (%) (Auto) 0.1, Basophils (%) ( Auto) 1.5, Erythrocyte Sedimentation Rate 10, Prothrombin Time 9.7, Prothromb Time International Ratio 1.0, Activated Partial Thromboplast Time 25, Urine Color Pale yellow, Urine Appearance Slightly cloudy, Urine pH 6, Urine Specific [place] 1.025, Urine Protein Negative, Urine Glucose (UA) Negative, Urine Ketones Negative, Urine Occult Blood Negative, Urine Nitrite Negative, Urine Bilirubin Negative, Urine Urobilinogen Normal, Urine Leukocyte Esterase 1+H, Urine RBC 0-2, Urine WBC 2-4, Urine Squamous Epithelial Cells Few, Urine Bacteria Few, Sodium Level 140, Potassium Level 4.2, Chloride Level 100, Carbon Dioxide Level 23, Anion Gap 17H, Blood Urea Nitrogen 19, Creatinine 0.8, Estimat Glomerular Filtration Rate > 60, Glucose Level 139H, Calcium Level 9.9, Total Bilirubin 0.2, Aspartate Amino Transf (AST/SGOT) 21, Alanine Aminotransferase (ALT/SGPT) 36H, Alkaline Phosphatase 85, Troponin I < 0.30, C- Reactive Protein, Quantitative < 0.3, Total Protein 7.8, Albumin 4.7, Globulin 3.1, Albumin/Globulin Ratio 1.5, Triglycerides Level 226H, Cholesterol Level 260H, LDL Cholesterol 149H, HDL Cholesterol 66H, Cholesterol/HDL Ratio 3.9, Angiotensin Converting Enzyme [Pending] Height (Feet): 5 Height (Inches): 4.00 Weight (Pounds): 250 General Appearance: WD/WN, alert, agitated Neck: supple Cardiovascular: regular rhythm Respiratory/Chest: lungs clear, normal breath sounds, no respiratory distress, no accessory muscle use Abdomen: normal bowel sounds, non tender, soft, no organomegaly, no mass Edema: no edema noted Arm (L), no edema noted Arm (R), no edema noted Leg (L), no edema noted Leg (R), no edema noted Pedal (L), no edema noted Pedal (R), no edema noted Generalized Neurologic: alert, responsive, other - very anxious NAVJOT RAMSAY Dec 29, 2016 08:28
[2016-12-29] MEDS ORDERED: LORazepam Inj 2mg/ml 1ml IV SCH (08:35)
[2016-12-29] MEDS: BuPROPion XL 300mg tab ORAL SCH (10:23)
[2016-12-29] MEDS: Aspirin EC 81mg tab ORAL SCH (10:23)
[2016-12-29] MEDS: Docusate 250mg cap ORAL SCH ×2 (10:24→17:42)
[2016-12-29] MEDS: Heparin 5000 units/ml inj SUBQ SCH ×2 (10:28→20:46)
[2016-12-29] MEDS: Losartan 25mg tab ORAL SCH (10:30)
[2016-12-29 11:28] VITALS: BP 130/80
--- NOTE | 2016-12-29 13:25 | Diagnostic Imaging Report ---
Indication: Right-sided weakness Technique: sagittal T1 fast spin echo, axial T1 and T2 FLAIR PROPELLER, axial T2 FLAIR PROPELLER, axial T2 FS PROPELLER, T2* GRE, axial diffusion weighted images, post contrast axial and coronal T1 FLAIR PROPELLER images. ADC and exponential ADC maps generated Comparison: 11/04/2016 Findings: . No abnormal areas of restricted diffusion to suggest acute infarction. No acute hemorrhage or edema. No mass effect nor midline shift. Unusually prominent perivascular spaces are seen in the upper hemispheres bilaterally, manifested by linear areas of low T1 and high T2 signal. Focus of prominent T2 FLAIR signal in the left corpus callosum is again demonstrated. Foci of prominent T2 FLAIR signal are also in the bilateral convexity deep white matter, better appreciated on the sagittal images.. These are also evident previously, appears slightly less conspicuous on the current study. In the right periventricular deep white matter, there are 2 or 3 very small linear T2 FLAIR hyperintensities which are not evident previously. These are questionable findings, however. No associated contrast enhancement or diffusion abnormality is noted There is an old left inferior basal ganglia lacunar infarct. No significant contrast enhancement. . Normal size ventricles and extra axial CSF spaces. Visualized orbits and sinuses are unremarkable. . Impression: White matter signal abnormalities, best appreciated on the T2 FLAIR images, also described on earlier reports, although there may be a few very tiny new signal abnormalities on the right. As previously reported, findings are concerning for demyelinating disease. There are no diffusion abnormalities or contrast enhancement to suggest active disease. Other possibilities such as microvascular angiopathy should also be considered as well. Prominent perivascular spaces, also previously reported Negative for acute intracranial bleed, mass effect, or contrast enhancing lesion
[2016-12-29 14:30] LABS: TROPONIN I < 0.30 ng/mL (<=0.30)
--- NOTE | 2016-12-29 14:54 | Neurology Progress Note ---
Interim History Interim History ROS Limited/Unobtainable: No Objective Physical Exam Last Vital Signs Date Time Temp Pulse Resp B/P Pulse Ox O2 Delivery O2 Flow Rate FiO2 12/29/16 12:00 96 12/29/16 11:28 98.1 18 130/80 99 Room Air Laboratory Tests Test 12/29/16 13:46 Troponin I < 0.30 ng/mL (<=0.30) Impression/Recommendations Problems: (1) TIA like transients very likely psychosomatic syndrom (2) mrbid obesity (3) Depression with anxiety (4) Sarcoidosis of lung (5) chronic pain/fibromyalgia Status: stable, progressing Recommendations #[id number] KATRIN ESTEVEZ Dec 29, 2016 14:54
[2016-12-29 16:00] VITALS: BP 116/74
[2016-12-29 20:00] VITALS: BP 117/75
[2016-12-29] MEDS: Norco 10mg/325mg tab ORAL PRN (20:04)
--- NOTE | 2016-12-29 21:28 | Consultation ---
DATE OF CONSULTATION: 12/29/2016 HISTORY OF PRESENT ILLNESS: This is a 46-year-old female, known to me from previous assessments, now presents with acute onset of slurred speech. The patient informed me that on the day of admission she was very tense and anxious that she had an appointment with the contracts attorney who mentioned that this will be her last chance to win the case, at that point the patient developed slurring of speech, the patient now recalled that she has slurring of speech on each occasion when she is very tired or very stressed out, as she got slurred speech, she also developed numbness in the right side of the face, but also both hands, someone called to Dr. Altamirano's office. The patient was referred to the emergency room to assess for possible TIA versus stroke, on arrival her vital signs were stable although blood pressure 156/107, heart rate of 100, and temperature 98.2. The patient's initial diagnostic studies included laboratory work revealing normal sedimentation rate of 10, unremarkable CBC study, coagulation panel normal, urinalysis was normal, and chemistry panel with elevated triglycerides 226, cholesterol 260, LDL 149, but also blood sugar 139, anion gap of 17, normal troponin, and normal CRP. Her CAT scan of the brain showed normal study and MRI of the brain obtained revealed white matter signal abnormality best appreciated on T2 FLAIR images with maybe a few very tiny new signal abnormalities on the right, findings of concerning demyelinating disease, no diffusion abnormality, or contrast enhancement noted. Other possibility of microvascular angiopathy. Prominent perivascular spaces noted. Negative for intracranial abnormality. No midline shift noted. This study was compared with the previous performed on 11/04/2016. Since admission to present, the patient's condition started to improve. The patient is known from a previous assessment, the most recent in October of this year, she was admitted with new onset of weakness in the left side of the body, numbness left facial area, numbness left upper and left lower extremity, MRI as mentioned revealed only few scattered periventricular subcortical hyperintense foci compatible to previous study done on 07/02/2013. Laboratory work was negative, the patient had a spinal tap done. No evidence of demyelination was noted. The patient was discharged with normal neurological examination. She has a history of sarcoidosis since 1996, history of hypertension, diabetes type 2, hyperlipidemia, morbid obesity, but also bronchial asthma. She has a chronic pain syndrome, suspected to have fibromyalgia. Her previous studies were negative for Lyme disease. Negative HIV, in 2013 spinal fluid revealed slight lymphocytic leukocytosis. The patient has a history of depression and anxiety. Her treatment prior to admission included albuterol, Wellbutrin 10 mg daily, Soma, [place] 10 mg t.i.d. as needed, and losartan. ALLERGIES: Acetaminophen, gabapentin, lisinopril, pregabalin, and sulfa drugs. REVIEW OF SYSTEMS: A fourteen point of review of symptoms was obtained. This was positive for as above including intermittent mild headaches, right to left facial numbness, tingling in both hands, numbness and tingling in both upper and mid lower back, pain in her upper, mid, and lower back, intermittently slurred speech related to tiredness and being stressed out. The patient indicated that after having cervical spine epidural block, she was off pain for two years. She admits being depressed and anxious. SOCIAL HISTORY: She is single, her only son in a suicidal attempt few years ago. Currently, she is at nursing facility for rehabilitation, she is not letting go back to her apartment. No alcohol. No drug abuse. FAMILY HISTORY: Noncontributory. PHYSICAL EXAMINATION: GENERAL: A well developed and morbidly obese female, who was found to be asleep in a dark room. VITAL SIGNS: Stable. Her heart rate of 101 and blood pressure 130/80. HEENT: Head, normocephalic. No evidence of trauma. Eyes, ears, and throat are clear. NECK: Supple. No meningeal signs. MUSCULOSKELETAL: Unremarkable. There are no deformities. Peripheral pulses 1+ symmetric. There is palpable tenderness diffusely both upper, mid, and lower back. Both upper and lower extremities peripheral pulses 1+, symmetric. MENTAL STATUS: The patient is alert and oriented x3. Speech is fluent. Language intact. There is no evidence of aphasia or apraxia, at times somewhat slurred speech. The patient is emotional, labile, tense, anxious, admitted being depressed, but when joked she was responding to the jokes as well. CRANIAL NERVES II: Pupils both responding to light and accommodation. Extraocular movement intact. No nystagmus. CRANIAL NERVE V: Normal corneal responses. CRANIAL NERVES VII: No facial asymmetry. CRANIAL NERVES VIII: Normal hearing. CRANIAL NERVES IX THROUGH XII: Tongue is in midline. Symmetric palate elevation. Motor examination, normal muscle tone. Strength 5/5 in all extremities. No involuntary movements. Deep reflexes 1+, symmetric. Downgoing toes on both sides. SENSORY EXAMINATION: Withdrawing to pin stimulation in both upper and lower extremities, somewhat inconsistent fashion, gait is slow, but stable. IMPRESSION: 1. A 46-year-old female with a history of intermittent transient ischemic attack like symptomatology, most likely representing a psychosomatic disorder. 2. Depression, anxiety. 3. Ischemic cerebrovascular disease, most likely represents the hypertensive angiopathy. 4. Diabetes type 2. 5. Hyperlipidemia. 6. Morbid obesity. 7. Hypertension. DISCUSSION: The patient has normal nonfocal neurological examination with MRI studies revealing only signs of angiopathy, but no evidence of acute or chronic strokes. No midline shift. No hemorrhages. Previous workup included carotid duplex, echocardiogram, spinal tap, recurrent MRIs, all nondiagnostic. The patient's treatment should include aspirin 81 mg daily, the patient to be seen by psychiatrist to address the issue of underlying depression. The patient will need a strict weight loss per program, and maintain strict control of high blood pressure and diabetes. Thank you for allowing me to see this interesting patient in neurological consultation. Thom Mackey M.D. DR: LA JOB#: [id number] CC:
[2016-12-30] VITALS: BP 137/96
[2016-12-30] MEDS: Pred Forte 1% Opth Susp 1ml BOTH EYES SCH ×4 (01:00→14:08)
--- NOTE | 2016-12-30 01:48 | Consultation ---
DATE OF CONSULTATION: 12/29/2016 HISTORY OF PRESENT ILLNESS: This is a 46-year-old, black female with a history of multiple medical problems including obesity, hypertension, back pain, sarcoidosis, depression, anxiety, asthma, TIA, and hemiparesis. The patient has been admitted to the hospital for medical stabilization. Psychiatry was consulted. The patient presents with severe anxiety, depressed mood, anhedonia, worthlessness, decreased energy, hopelessness and helplessness. This is happening in context of chronic medical conditions, which are several medical conditions as well as the patient's legal issues seems malpractice in office as well as multiple psychosocial stressors, and family issues. The patient is also dealing with chronic pain. She has been also on Wellbutrin and apparently the Wellbutrin has not been effective. PAST PSYCHIATRIC HISTORY: She has been diagnosed with depression and has been treated with Wellbutrin as well as with anxiety. PAST MEDICAL HISTORY: Obesity, hypertension, chronic back pain, low back pain, and sarcoidosis. ALLERGIES: Include acetaminophen, gabapentin, lisinopril, and sulfa drugs. PAST SOCIAL HISTORY: There were no history of illicit drugs or alcohol. The patient attempted suicide several years ago and the patient is still dealing with that. She is currently living in a nursing facility and is single. MENTAL STATUS EXAMINATION: Alert and oriented x4. Mood is depressed. Affect is euphoric and constricted. Thought process is circumstantial. Thought content no suicidal or homicidal ideation. ASSESSMENT: [place] I Major depressive disorder. [place] II Deferred. [place] III As above. [place] IV Mild. [place] V Global assessment of functioning is 55. PLAN: 1. We will continue the patient on Wellbutrin. 2. We will start the patient on Lexapro 10 mg in the morning. We will start the patient on Klonopin 1 mg by mouth at bedtime. 3. We will continue to follow and readjust the medications. Lio Polk M.D. DR: RADHA JOB#: [id number] CC:
[2016-12-30] MEDS: HYDROmorphone 1mg/ml Carpuject IVP PRN ×3 (03:26→14:07)
[2016-12-30] MEDS: Artificial Tears 1.4% Op Soln BOTH EYES PRN (03:34)
[2016-12-30 04:00] VITALS: BP 126/67
[2016-12-30] MEDS: Norco 10mg/325mg tab ORAL PRN ×2 (05:42→11:59)
[2016-12-30] MEDS ORDERED: CLONAZEPAM1 M2 ORAL (07:52)
[2016-12-30] MEDS ORDERED: ASPIRIN EC81 MG ORAL (07:52)
[2016-12-30] MEDS ORDERED: LEXAPRO10 MG ORAL (07:52)
[2016-12-30] MEDS ORDERED: LIPITOR10 MG ORAL (07:52)
[2016-12-30 08:14] VITALS: BP 136/93
[2016-12-30] MEDS: Docusate 250mg cap ORAL SCH (09:26)
[2016-12-30] MEDS: Aspirin EC 81mg tab ORAL SCH (09:26)
[2016-12-30] MEDS: BuPROPion XL 300mg tab ORAL SCH (09:26)
[2016-12-30] MEDS: Heparin 5000 units/ml inj SUBQ SCH (09:32)
[2016-12-30] MEDS: Losartan 25mg tab ORAL SCH (09:34)
[2016-12-30 11:39] VITALS: BP 144/83
--- NOTE | 2016-12-31 01:08 | Discharge Summary ---
DATE OF ADMISSION: 12/28/2016 DATE OF DISCHARGE: 12/30/2016 ADMISSION DIAGNOSES: 1. Transient ischemic attack. 2. History of ischemic stroke. 3. History of hypertension. 4. Asthma. 5. Sarcoidosis. DISCHARGE DIAGNOSES: 1. Transient ischemic attack. 2. History of ischemic stroke. 3. History of hypertension. 4. Asthma. 5. Sarcoidosis. HOSPITAL COURSE: The patient is a 46-year-old female, who does have a prior history of stroke. She presented with acute onset of dysarthria. She was transferred to the emergency room where CAT scan was unremarkable. She had an MRI that showed angiopathy. This was discussed with the radiologist. He did not think the patient had MS, as was previously concerning on a prior MRI. Her dysarthria resolved. She was treated with antiplatelet therapy. It was recommended that she consider going on Plavix in addition to her aspirin, which she declined because of poor reactions to Plavix. She was noted to be hyperlipidemic and started on statin therapy. The patient will be discharged and followed up closely at the nursing home facility where she will receive PT, OT, and ST. DISCHARGE MEDICATIONS: Please see discharge list for discharge medications. DIET: Cardiac diet. ACTIVITIES: Ad-shane. FOLLOWUP: The patient will be followed up in one to two days at the nursing home facility. Jeremias Altamirano M.D. DR: GIOVANNI JOB#: [id number] CC:
--- NOTE | 2017-01-01 02:08 | Progress Note ---
DATE: 12/29/2016 SUBJECTIVE: The patient is tearful, anxious, agitated, has multiple complaints. Spoke about her son, who attempted suicide . Has poor insight and judgment into her mental condition. She was going to be receiving procedures, therefore I decided to visit the patient the next day. MENTAL STATUS EXAMINATION: Alert and oriented x4. Mood is depressed. Affect is constricted, congruent with mood, tearful. Thought process is circumstantial. Thought content, no suicidal or homicidal ideations. ASSESSMENT: 1. Depression. 2. Posttraumatic stress disorder. PLAN: 1. The patient will be continued with current medication. 2. We will assess the patient further tomorrow and make more recommendations. Lio Polk M.D. DR: SIOBHAN JOB#: [id number] CC:
--- NOTE | 2017-01-03 11:51 | Cardiology Report ---
APPROVED REPORT EKG Measurement Heart [id number] CO [id number] Normal sinus rhythm Normal ECG
== END 2016-12-30 14:20 | DRG 69 ==
LOC: EMR 11:37 → 2E 12:12 → EDBEDREQ 18:59
DX: G45.9 Transient cerebral ischemic attack, unspecified (principal); Z68.41 Body mass index [BMI] 40.0-44.9, adult; E66.01 Morbid (severe) obesity due to excess calories; D86.0 Sarcoidosis of lung; J45.909 Unspecified asthma, uncomplicated; E78.5 Hyperlipidemia, unspecified; R47.1 Dysarthria and anarthria; F41.8 Other specified anxiety disorders; M79.7 Fibromyalgia; E11.9 Type 2 diabetes mellitus without complications; F43.10 Post-traumatic stress disorder, unspecified; Z88.2 Allergy status to sulfonamides; Z86.73 Personal history of transient ischemic attack (TIA), and cerebral infarction without residual deficits
CPT/HCPCS: 36415; 70450; 70553; 80053; 80061; 81003; 82164; 84484; 85025; 85610; 85651; 85730; 86140; 87081; 93005; A9585; J2405

== ENCOUNTER → 2017-07-06 | Outpatient (CLI) | payer MEDICARE, OTHER ==
[~2017-07-06] MED LIST changes: +ASPIR 8181 MG ORAL; +ASPIRIN EC81 MG ORAL; +CLONAZEPAM1 M2 ORAL; +LEXAPRO10 MG ORAL; +LIPITOR10 MG ORAL
[2017-07-06 09:31] LABS: BASOPHILS % (AUTO) 1.6 % (0.0-2.0); MEAN CORPUSCULAR HEMOGLOBIN 32.5 PG (27.0-31.0); MEAN CORPUSCULAR HGB CONC 33.4 G/DL (32.0-36.0); MEAN CORPUSCULAR VOLUME 97 FL (80-99); MEAN PLATELET VOLUME 6.1 FL (6.5-10.1); MONOCYTES % (AUTO) 10.4 % (1.0-10.0); PLATELET COUNT 374 K/UL (150-450); RED BLOOD COUNT 5.17 M/UL (4.20-5.40); RED CELL DISTRIBUTION WIDTH 11.8 % (11.6-14.8); WHITE BLOOD COUNT 5.5 K/UL (4.8-10.8)
[2017-07-06 09:52] LABS: ALANINE AMINOTRANSFERASE 44 U/L (3-33); ALBUMIN/GLOBULIN RATIO 1.5 (1.0-2.7); ANION GAP 15 (5-15); ASPARTATE AMINO TRANSFERASE 28 U/L (5-40); CARBON DIOXIDE 22 mEQ/L (20-30); CHLORIDE 102 mEQ/L (98-107); CHOLESTEROL 251 mg/dL (< 200); CHOLESTEROL/HDL RATIO 4.4 (3.3-4.4); CREATININE 1.1 mg/dL (0.5-0.9); GLOMERULAR FILTRATION RATE > 60 mL/min (>60); HEMOLYSIS 5; LDL CHOLESTEROL (CALC.) 165 mg/dL (60-99); SODIUM 139 mEQ/L (135-145); TOTAL PROTEIN 8.4 g/dL (6.6-8.7)
[2017-07-06 10:02] LABS: THYROID STIMULATING HORMONE 0.836 uIU/mL (0.300-4.500)
[2017-07-06 10:13] LABS: HEMOGLOBIN A1C 5.9 % (< 6.0)
--- NOTE | 2017-07-06 11:53 | Diagnostic Imaging Report ---
Indication: [id number] female outpatient with history of multiple sclerosis Technique: sagittal T1 fast spin echo, axial T1 and T2 FLAIR PROPELLER, sagittal T2 FLAIR PROPELLER, axial T2 FS PROPELLER, T2* GRE, axial diffusion weighted images, post contrast axial and coronal T1 FLAIR PROPELLER images. ADC and exponential ADC maps generated Comparison: 12/29/2016 Findings: . No abnormal areas of restricted diffusion to suggest acute infarction or active demyelination. There is a tiny focus of hyperintensity in the parasagittal parietal gauthier-white junction, image 23 series 3 on the diffusion weighted images, but this is also bright on the T2 weighted images and on the ADC map, so does not represent an area of true restricted diffusion. No acute hemorrhage or edema. No mass effect nor midline shift. No abnormal contrast enhancement. Normal size ventricles and extra axial CSF spaces. Prominent deep white matter perivascular spaces are noted. Small foci of T2 signal abnormalities are seen in the left parietal and frontal periventricular deep white matter and the right posterior frontal deep white matter. Small focus of prominent T2 FLAIR signal is again demonstrated in the corpus callosum. The linear periventricular right-sided T2 FLAIR signal abnormality as described previously are not evident currently. Previously reported left inferior basal ganglia lacunar infarct versus prominent perivascular space is again visualized, only on the T2 FLAIR images this time. A focus of T2 hyperintensity is seen in the left insula, equivocally demonstrated previously but better visualized currently. Visualized orbits and sinuses are unremarkable. Impression: Areas of T2 signal hyperintensity, as described, all probably unchanged from prior study of 12/29/2016, most likely representing foci of chronic demyelination given stated clinical history. No definite new lesions demonstrated No definite areas of diffusion restriction or contrast enhancement to suggest active demyelination. Negative for acute intracranial bleed, mass effect, or infarct
== END | disposition home or self-care (01) ==
LOC: MRI 09:06
DX: G35 Multiple sclerosis (principal); I10 Essential (primary) hypertension; E11.9 Type 2 diabetes mellitus without complications; D86.9 Sarcoidosis, unspecified
CPT/HCPCS: 36415; 70553; 80053; 80061; 82306; 83036; 84443; 85025; A9585

== ENCOUNTER 2017-07-08 14:45 | Inpatient (IN) | payer MEDICARE, OTHER ==
[~2017-07-08] VITALS: Ht 167.6 cm; Wt 104.3 kg
[2017-07-08] MEDS ORDERED: HYDROmorphone 1mg/ml Carpuject IVP ONE (15:00)
[2017-07-08] MEDS ORDERED: SOMA350 MG PO (15:01)
[2017-07-08] MEDS ORDERED: PLAVIX75 MG ORAL (15:01)
[2017-07-08] MEDS ORDERED: NORCO 10-325 T1 EACH ORAL (15:01)
--- NOTE | 2017-07-08 15:08 | Emergency Room Report ---
History of Present Illness General Chief Complaint: Dyspnea/Respdistress Source: Patient, Medical Record Present Illness HPI Patient presents with chest pain. This began after she had an MRI last week. She's been having intermittent chest pressure substernal. They gave her contrast for the MRI and since that time she's been having severe left hand pain and numbness. Seems to get worse when she is chest pain. She's had nausea and indigestion type feelings in her upper abdomen also. She denies any vomiting or diarrhea. She's had chills with no documented fever. There's not been a productive cough. Pain is 10/10, pressure and tightness also in L hand. She is anxious. She says she did not take any pain medicine today. Post stroke 2010. The patient has a history of sarcoidosis. She says the sarcoid is getting worse and she has spread of the disease. The sarcoid involves her lungs in her brain (according to her). She's had surgeries to remove lesions in breasts and parotid. One kidney. Back surgery with chronic back pain. Apparently, she has fibromyalgia, chronic pain, depression and PTSD. Denies SI at this time. Last discharge December 2016 with these d/c diagnoses: 1. Transient ischemic attack. 2. History of ischemic stroke. 3. History of hypertension. 4. Asthma. 5. Sarcoidosis. Allergies: Coded Allergies: LISINOPRIL (Verified Allergy, Severe, Shortness of Breath, 07/02/13) coughing, vomiting SULFA (SULFONAMIDE ANTIBIOTICS) (Verified Allergy, Severe, Hives, 07/02/13) GABAPENTIN (Unverified Allergy, Unknown, 06/21/15) ACETAMINOPHEN (Verified Adverse Reaction, Intermediate, upset stomach, ) PREGABALIN (Verified Adverse Reaction, Intermediate, 07/04/13) PT STATES SHE GETS SWOLLEN Patient History Past Medical History: see triage record, old chart reviewed Past Surgical History: hysterectomy, other - removal of lesions breasts and parotid, back surgery Social History: Reports: alcohol use, drug use, Denies: smoking Social History Narrative from home Last Menstrual Period: Post Reviewed Nursing Documentation: PMH: Agreed, PSxH: Agreed Nursing Documentation-PMH Hx Cardiac Problems: Yes Hx Hypertension: Yes Hx Pacemaker: No Hx Asthma: Yes - sarcoidosis, fibromyalgia Hx COPD: Yes Hx Diabetes: Yes Hx Cancer: Yes Hx Gastrointestinal Problems: No Hx Dialysis: No Hx Neurological Problems: Yes - stroke Hx Cerebrovascular Accident: Yes - 2010 Hx Seizures: No Hx Dysphasia: Yes Hx Numbness: Yes - Right sided numbness Hx Weakness: Yes - Generalized weakness Review of Systems All Other Systems: negative except mentioned in HPI Physical Exam Vital Signs Date Time Temp Pulse Resp B/P (MAP) Pulse Ox O2 Delivery O2 Flow Rate FiO2 07/08/17 14:50 Room Air 07/08/17 16:37 18 127/88 07/08/17 16:39 78 07/08/17 18:05 97.0 99 Sp02 EP Interpretation: reviewed, normal General Appearance: well appearing, no apparent distress, GCS 15 Head: normocephalic Eyes: bilateral eye normal inspection, bilateral eye PERRL ENT: moist mucus membranes Neck: supple Respiratory: lungs clear, normal breath sounds Cardiovascular #1: regular rate, rhythm Cardiovascular #2: 2+ radial (R) Gastrointestinal: normal inspection, normal bowel sounds, non tender, no mass, non-distended, overweight Musculoskeletal: back normal, gait/station normal, normal range of motion, no calf tenderness Neurologic: alert, oriented x3, motor strength/tone normal, DTRs symmetric, sensory intact - subjective decreased L hand, cerebellar normal, speech normal Psychiatric: no suicidal/homicidal ideation, anxious Skin: normal inspection, warm/dry Medical Decision Making Diagnostic Impression: Primary Impression: Chest pain Qualified Codes: R07.9 - Chest pain, unspecified Additional Impressions: Sarcoidosis - multiple sites Paresthesia of arm ER Course Patient presents with dyspnea and chest pain with left hand numbness. This is after receiving contrast for an MRI. She's had problems like this before but never this severe. Differential includes acute myocardial infarction, acute coronary syndrome, anxiety, costochondritis amongst others. Evaluation needs to be done to exclude cardiac cause. In addition she'll be treated for pain. Evaluation will include EKG, chest x-ray laboratory. The patient does not appear to be allergic and therefore Solu-Medrol is not indicated the moment. MRI done this week and sy more local to L upper extremity. MRI 07/06: Impression: Areas of T2 signal hyperintensity, as described, all probably unchanged from prior study of 12/29/2016, most likely representing foci of chronic demyelination given stated clinical history. No definite new lesions demonstrated No definite areas of diffusion restriction or contrast enhancement to suggest active demyelination. Negative for acute intracranial bleed, mass effect, or infarct. EKG and CXR below. Labs remarkable for normal WBC, H/H and ESR. Normal labs ( min elevated CK). UA ordered but not obtained. Patient improved with treatment, however, needs further evaluation with neuro consult. Also needs ACS excluded. Admit Tele Dr. Altamirano. Laboratory Tests Test 07/08/17 15:25 White Blood Count 6.0 K/UL (4.8-10.8) Red Blood Count 4.28 M/UL (4.20-5.40) Hemoglobin 14.8 G/DL (12.0-16.0) Hematocrit 42.2 % (37.0-47.0) Mean Corpuscular Volume 99 FL (80-99) Mean Corpuscular Hemoglobin 34.7 PG (27.0-31.0) H Mean Corpuscular Hemoglobin Concent 35.2 G/DL (32.0-36.0) Red Cell Distribution Width 11.9 % (11.6-14.8) Platelet Count 301 K/UL (150-450) Mean Platelet Volume 5.9 FL (6.5-10.1) L Neutrophils (%) (Auto) % (45.0-75.0) Lymphocytes (%) (Auto) % (20.0-45.0) Monocytes (%) (Auto) % (1.0-10.0) Eosinophils (%) (Auto) % (0.0-3.0) Basophils (%) (Auto) % (0.0-2.0) Differential Total Cells Counted 100 Neutrophils % (Manual) 27 % (45-75) L Lymphocytes % (Manual) 64 % (20-45) H Monocytes % (Manual) 9 % (1-10) Eosinophils % (Manual) 0 % (0-3) Basophils % (Manual) 0 % (0-2) Band Neutrophils 0 % (0-8) Platelet Estimate Adequate Platelet Morphology Normal Macrocytosis 1+ Erythrocyte Sedimentation Rate 16 MM/HR (0-20) Prothrombin Time 9.5 SEC (9.30-11.50) Prothrombin Time INR 0.9 (0.9-1.1) PTT 25 SEC (23-33) Sodium Level 143 mEQ/L (135-145) Potassium Level 3.8 mEQ/L (3.4-4.9) Chloride Level 104 mEQ/L (98-107) Carbon Dioxide Level 25 mEQ/L (20-30) Anion Gap 14 (5-15) Blood Urea Nitrogen 22 mg/dL (7-23) Creatinine 0.9 mg/dL (0.5-0.9) Estimate Glomerular Filtration Rate > 60 mL/min (>60) Glucose Level 93 mg/dL (74-106) Calcium Level 9.5 mg/dL (8.6-10.2) Total Bilirubin 0.3 mg/dL (0.0-1.2) Aspartate Amino Transferase (AST) 25 U/L (5-40) Alanine Aminotransferase (ALT) 35 U/L (3-33) H Alkaline Phosphatase 85 U/L (35-104) Total Creatine Kinase 170 U/L (26-140) H Troponin I < 0.30 ng/mL (<=0.30) Pro-B-Type Natriuretic Peptide 25 pg/mL (0-125) Total Protein 7.5 g/dL (6.6-8.7) Albumin 4.7 g/dL (3.5-5.2) Globulin 2.8 g/dL Albumin/Globulin Ratio 1.6 (1.0-2.7) EKG Diagnostic Results Rate: normal Rhythm: NSR ST Segments: no acute changes Rhythm Strip Diag. Results EP Interpretation: yes Rhythm: NSR, no PVC's, no ectopy Chest X-Ray Diagnostic Results Chest X-Ray Diagnostic Results : Chest X-Ray Ordered: Yes # of Views/Limited/Complete: 1 View Indication: Other EP Interpretation: Yes Interpretation: no consolidation, no effusion, no pneumothorax Impression: Other Electronically Signed by: Alphonse Ghotra MD Last Vital Signs Date Time Temp Pulse Resp B/P (MAP) Pulse Ox O2 Delivery O2 Flow Rate FiO2 07/09/17 01:38 Room Air 07/09/17 00:11 97.1 87 16 120/89 98 87 Status: improved Disposition: ADMITTED INPATIENT Condition: Serious Alphonse Ghotra M.D. Jul 08, 2017 15:08
[2017-07-08] MEDS ORDERED: Famotidine 20 MG/ 2ML VIAL IVP ONE (15:15)
[2017-07-08 15:53] LABS: INR 0.9 (0.9-1.1); MEAN CORPUSCULAR HEMOGLOBIN 34.7 PG (27.0-31.0); MEAN CORPUSCULAR HGB CONC 35.2 G/DL (32.0-36.0); MEAN CORPUSCULAR VOLUME 99 FL (80-99); MEAN PLATELET VOLUME 5.9 FL (6.5-10.1); PLATELET COUNT 301 K/UL (150-450); PROTHROMBIN TIME 9.5 SEC (9.30-11.50); RED BLOOD COUNT 4.28 M/UL (4.20-5.40); RED CELL DISTRIBUTION WIDTH 11.9 % (11.6-14.8)
[2017-07-08 15:59] LABS: ALANINE AMINOTRANSFERASE 35 U/L (3-33); ALBUMIN/GLOBULIN RATIO 1.6 (1.0-2.7); ANION GAP 14 (5-15); ASPARTATE AMINO TRANSFERASE 25 U/L (5-40); CALCIUM 9.5 mg/dL (8.6-10.2); CARBON DIOXIDE 25 mEQ/L (20-30); CHLORIDE 104 mEQ/L (98-107); CREATININE 0.9 mg/dL (0.5-0.9); GLOMERULAR FILTRATION RATE > 60 mL/min (>60); HEMOLYSIS 8; POTASSIUM 3.8 mEQ/L (3.4-4.9); SODIUM 143 mEQ/L (135-145); TOTAL PROTEIN 7.5 g/dL (6.6-8.7)
[2017-07-08 16:10] LABS: TROPONIN I < 0.30 ng/mL (<=0.30)
[2017-07-08 16:37] VITALS: BP 127/88
[2017-07-08 17:00] LABS: LYMPHOCYTES % (MANUAL) 64 % (20-45); NEUTROPHILS % (MANUAL) 27 % (45-75); TOTAL CELLS COUNTED 100
[2017-07-08 17:01] LABS: MACROCYTES 1+
[2017-07-08 17:02] LABS: BAND NEUTROPHILS % (MANUAL) 0 % (0-8); BASOPHILS % (MANUAL) 0 % (0-2); EOSINOPHILS % (MANUAL) 0 % (0-3); PLATELET ESTIMATE ADEQUATE; PLATELET MORPHOLOGY NORMAL
[2017-07-08 17:08] LABS: ERYTHROCYTE SEDIMENTATION RATE 16 MM/HR (0-20)
[2017-07-08 18:05] VITALS: BP 140/95
[2017-07-08] MEDS: Albuterol 90mcg Inhaler 8gm INH SCH ×2 (18:45→22:45)
[2017-07-08] MEDS: HYDROmorphone 1mg/ml Carpuject IVP PRN (19:30)
[2017-07-08 20:17] VITALS: BP 121/80
[2017-07-08] MEDS ORDERED: Vancomycin 1750mg/D5W 300ml IVPB ONE ×2 (20:30)
[2017-07-08] MEDS: BuPROPion XL 150mg tab ORAL SCH (20:41)
[2017-07-08] MEDS: Aspirin EC 81mg tab ORAL SCH (20:41)
[2017-07-09 00:11] VITALS: BP 120/89
[2017-07-09] MEDS: HYDROmorphone 1mg/ml Carpuject IVP PRN ×6 (00:40→21:58)
[2017-07-09] MEDS: Albuterol 90mcg Inhaler 8gm INH SCH ×6 (02:45→22:27)
[2017-07-09 04:31] VITALS: BP 121/73
[2017-07-09] MEDS: DiphenhydrAMINE 50mg/ml Inj IVP PRN ×4 (06:23→21:56)
[2017-07-09 08:34] VITALS: BP 129/86
[2017-07-09] MEDS: Docusate 100mg cap ORAL SCH ×2 (09:05→17:36)
[2017-07-09] MEDS: BuPROPion XL 150mg tab ORAL SCH (09:05)
[2017-07-09] MEDS: Aspirin EC 81mg tab ORAL SCH (09:06)
[2017-07-09] MEDS: Losartan 25mg tab ORAL SCH (09:06)
[2017-07-09] MEDS: Vancomycin 1250mg/D5W 250ml IVPB SCH ×2 (09:15→21:20)
--- NOTE | 2017-07-09 10:03 | Diagnostic Imaging Report ---
Indication: Chest pain Technique: XRAY CHEST 1 V Comparison: 11/02/16 Findings: Cardiomediastinal silhouette is stable. There is no consolidation, pneumothorax or pleural effusion. Osseous structures are stable. Impression: No acute cardiopulmonary disease.
[2017-07-09 12:06] VITALS: BP 126/82
[2017-07-09 15:59] VITALS: BP 120/80
--- NOTE | 2017-07-09 17:00 | History and Physical Report ---
DATE OF ADMISSION: 07/08/2017 CHIEF COMPLAINT: Unstable angina, chest pain, left arm cellulitis. History Of Present Illness: The patient is a pleasant 46-year-old female. She has a history of sarcoidosis, stroke, hypertension, hypertensive heart disease, fibromyalgia, asthma, who presented from home with complaints of left arm pain and chest pain. The patient recently had an MRI of the brain with contrast. She did have a Hep-Lock placed. She noted pain, erythema, warmth, fevers, and chills a day after the MRI. There was concern of possible cellulitis. In addition, she had chest pain and she presented to the emergency room. On evaluation there, initial cardiac enzymes were unremarkable. The patient has been started on antibiotic therapy. She is now admitted for further evaluation for chest pain and cellulitis. PAST MEDICAL HISTORY: As above. PAST SURGICAL HISTORY: Resection of a parotid tumor. CURRENT MEDICATIONS: Reconciled and reviewed. ALLERGIES: Acetaminophen, gabapentin, lisinopril, Lyrica, and sulfa. FAMILY HISTORY: Noncontributory. SOCIAL HISTORY: Negative for tobacco, ethanol, or drugs. Review Of Systems: General: Positive for fevers and chills. No night sweats. HEENT: Positive headaches. No visual changes. Cardiopulmonary: Positive chest pain. No shortness of breath. Positive wheezing. Gastrointestinal: No nausea or vomiting. Genitourinary: No urgency or frequency. Musculoskeletal: No joint pain or swelling. Neurologic: No evidence of seizures. PHYSICAL EXAMINATION: Vital Signs: Temperature 97, pulse 80, respirations 16, and blood pressure 121/73. General: The patient is a well-developed female, in no apparent distress. HEART: Regular rate and rhythm. LUNGS: Scattered wheezes. ABDOMEN: Soft, nontender, and nondistended. EXTREMITIES: Without clubbing, cyanosis, or edema. Laboratory Data: Labs showed white count of 6, hemoglobin 14, and hematocrit 42. Potassium of 3.8 and sodium 143. Troponin was negative. Assessment: This is a pleasant female, admitted with complaints of chest pain and left arm cellulitis. 1. Chest pain. 2. Cellulitis. 3. Sarcoidosis. 4. Asthma. 5. Asthma with mild exacerbation. 6. History of hypertension. 7. History of stroke. Plan: Continue antiplatelet therapy. Pain medications as needed. IV antibiotic therapy for cellulitis. Continue respiratory treatments. We will consider steroids. Jeremias Altamirano M.D. DR: JUDITH JOB#: [id number] CC:
[2017-07-09 20:00] VITALS: BP 136/80
--- NOTE | 2017-07-09 21:45 | Progress Note ---
DATE: 07/09/2017 Subjective: The patient feels better. Still with left arm and some chest pain. Less short of breath. OBJECTIVE: Vital signs: Blood pressure 126/82, pulse 87, respirations 18, afebrile, and room air oxygen saturation 96%. LUNGS: Few expiratory wheezes. Cardiac: Regular rhythm and rate. Normal S1 and S2 with a 4th heart sound. ABDOMEN: Soft. EXTREMITIES: No edema. LABORATORY AND DIAGNOSTIC DATA: Labs noted. IMPRESSION: 1. Nonanginal chest pain. 2. Cellulitis of left upper extremity. 3. Sarcoidosis. 4. Asthma. 5. Acute bronchospasm. 6. Systemic sarcoidosis. 7. Hypertensive heart disease. 8. Cerebrovascular disease with history of cerebrovascular accident. PLAN: 1. Anti-platelet therapy. 2. Follow up troponin level. 3. Antimicrobials. 4. Bronchodilators. 5. Pain control. Alphonse Washington M.D. DR: Yolis JOB#: [id number] CC:
[2017-07-10] VITALS (7 sets, daily range): BP systolic 105–137; BP diastolic 71–87
[2017-07-10] MEDS: Albuterol 90mcg Inhaler 8gm INH SCH ×6 (02:45→22:45)
[2017-07-10] MEDS: DiphenhydrAMINE 50mg/ml Inj IVP PRN ×5 (04:19→21:26)
[2017-07-10] MEDS: HYDROmorphone 1mg/ml Carpuject IVP PRN ×5 (04:22→21:26)
[2017-07-10] MEDS: Lactobacillus-GG tablet ORAL SCH ×3 (08:41→17:11)
[2017-07-10] MEDS: Docusate 100mg cap ORAL SCH ×2 (08:42→17:11)
[2017-07-10] MEDS: BuPROPion XL 150mg tab ORAL SCH (08:42)
[2017-07-10] MEDS: Aspirin EC 81mg tab ORAL SCH (08:42)
[2017-07-10] MEDS: Losartan 25mg tab ORAL SCH (08:43)
[2017-07-10] MEDS: Vancomycin 1250mg/D5W 250ml IVPB SCH ×2 (08:48→20:43)
[2017-07-10 08:57] LABS: TROPONIN I < 0.30 ng/mL (<=0.30)
[2017-07-10] MEDS ORDERED: Tubing IV Secondary IV ONE (14:28)
[2017-07-10] MEDS ORDERED: Fluconazole 100mg tab ORAL ONE (20:30)
--- NOTE | 2017-07-10 21:25 | General Progress Note ---
Assessment/Plan Problem List: (1) Cellulitis ICD Codes: L03.90 - Cellulitis, unspecified SNOMED: 548010887 (2) Asthma exacerbation ICD Codes: J45.901 - Unspecified asthma with (acute) exacerbation SNOMED: 609203568 (3) Chest pain ICD Codes: R07.9 - Chest pain, unspecified SNOMED: [id number] Status: stable, progressing Assessment/Plan IV ABX PAIN RX skin care resp rx bp rx Subjective ROS Limited/Unobtainable: No Constitutional: Reports: malaise, weakness HEENT: Reports: no symptoms Cardiovascular: Reports: chest pain Respiratory: Reports: cough Gastrointestinal/Abdominal: Reports: no symptoms Genitourinary: Reports: no symptoms Neurologic/Psychiatric: Reports: pre-existing deficit Endocrine: Reports: no symptoms Hematologic/Lymphatic: Reports: anemia Allergies: Coded Allergies: LISINOPRIL (Verified Allergy, Severe, Shortness of Breath, 07/02/13) coughing, vomiting SULFA (SULFONAMIDE ANTIBIOTICS) (Verified Allergy, Severe, Hives, 07/02/13) GABAPENTIN (Unverified Allergy, Unknown, 06/21/15) ACETAMINOPHEN (Verified Adverse Reaction, Intermediate, upset stomach, ) PREGABALIN (Verified Adverse Reaction, Intermediate, 07/04/13) PT STATES SHE GETS SWOLLEN All Systems: reviewed and negative except above Subjective c/o chest pain and sob. +left arm pain. on iv abx. no fevers Objective Last 24 Hour Vital Signs Date Time Temp Pulse Resp B/P (MAP) Pulse Ox O2 Delivery O2 Flow Rate FiO2 07/10/17 20:00 97.7 85 19 124/80 96 Room Air 07/10/17 19:48 81 18 99 Room Air 07/10/17 19:48 76 18 98 Room Air 07/10/17 16:00 90 07/10/17 15:45 97.5 88 18 117/83 95 Room Air 07/10/17 15:22 90 20 98 Room Air 07/10/17 15:22 88 20 97 Room Air 07/10/17 12:00 89 07/10/17 11:42 97.8 85 18 105/71 97 Room Air 07/10/17 11:41 91 20 98 Room Air 07/10/17 11:40 92 20 97 Room Air 07/10/17 08:43 119/71 07/10/17 08:00 78 07/10/17 08:00 97.7 81 18 119/71 96 Room Air 07/10/17 07:49 86 20 98 Room Air 21 07/10/17 07:49 85 20 96 Room Air 21 07/10/17 04:00 97.7 79 20 137/87 91 Room Air 79 07/10/17 04:00 84 07/10/17 03:04 Room Air 21 07/10/17 03:03 20 Room Air 07/10/17 00:00 85 07/10/17 00:00 98.1 85 20 120/77 90 Room Air 07/09/17 22:29 Room Air 21 07/09/17 22:28 20 Room Air 07/09/17 22:28 98.0 Intake and Output 07/10/17 07/11/17 19:00 07:00 Intake Total 1413.334 ml Balance 1413.334 ml Intake Oral 1080 ml IV Total 333.334 ml # Voids 4 Laboratory Tests 07/10/17 08:05: Troponin I < 0.30, Vancomycin Level Trough 12.2H Height (Feet): 5 Height (Inches): 6.00 Weight (Pounds): 230 General Appearance: WD/WN Neck: supple Cardiovascular: regular rhythm Respiratory/Chest: lungs clear, normal breath sounds, no respiratory distress Abdomen: normal bowel sounds, non tender, soft, no organomegaly Edema: no edema noted Arm (L), no edema noted Arm (R), no edema noted Leg (L), no edema noted Leg (R), no edema noted Pedal (L), no edema noted Pedal (R), no edema noted Generalized NAVJOT RAMSAY Jul 10, 2017 21:25
[2017-07-11] MEDS: Albuterol 90mcg Inhaler 8gm INH SCH ×3 (02:45→11:38)
[2017-07-11] MEDS: HYDROmorphone 1mg/ml Carpuject IVP PRN ×3 (02:50→12:32)
[2017-07-11] MEDS: DiphenhydrAMINE 50mg/ml Inj IVP PRN ×2 (02:50→08:32)
--- NOTE | 2017-07-11 03:30 | Progress Note ---
DATE: 07/10/2017 CARDIOLOGY PROGRESS NOTE Subjective: The patient feels better. She still has diffuse pain, but no focal chest pain. No shortness of breath. No calf pain. OBJECTIVE: Vital Signs: Blood pressure 124/80, pulse 85, and respirations 19. No fevers. NECK: Supple. LUNGS: Clear. Cardiac: Regular rhythm and rate. Normal S1 and S2 with a fourth heart sound. ABDOMEN: Soft. EXTREMITIES: Left upper extremity with less edema and warmth. LABORATORY DATA: Admission laboratories were reviewed. IMPRESSION: 1. Left upper extremity cellulitis, improved. 2. Non-anginal chest pain. 3. Sarcoidosis. 4. Fibromyalgia. 5. Chronic pain. 6. Asthma. No acute bronchospasm at this time. 7. Hypertensive heart disease with controlled blood pressure. 8. History of cerebrovascular accident, stable. PLAN: 1. Antibiotics. 2. Mobilization. 3. Anti-platelet therapy. 4. PRN bronchodilators. 5. Symptom guarded pain control. 6. No change in current antihypertensives. 7. May advance losartan, if blood pressure range increases. 8. Check lipid panel as well as CK and aldolase levels. Alphonse Washington M.D. DR: MIKY JOB#: [id number] CC:
[2017-07-11 04:00] VITALS: BP 123/75
[2017-07-11 07:16] LABS: ALANINE AMINOTRANSFERASE 24 U/L (3-33); ALBUMIN/GLOBULIN RATIO 1.5 (1.0-2.7); ANION GAP 10 (5-15); ASPARTATE AMINO TRANSFERASE 16 U/L (5-40); CALCIUM 9.1 mg/dL (8.6-10.2); CARBON DIOXIDE 29 mEQ/L (20-30); CHLORIDE 102 mEQ/L (98-107); CHOLESTEROL 193 mg/dL (< 200); CHOLESTEROL/HDL RATIO 3.6 (3.3-4.4); CREATININE 0.9 mg/dL (0.5-0.9); GLOMERULAR FILTRATION RATE > 60 mL/min (>60); HEMOLYSIS 3; LDL CHOLESTEROL (CALC.) 109 mg/dL (60-99); POTASSIUM 4.4 mEQ/L (3.4-4.9); SODIUM 141 mEQ/L (135-145); TOTAL PROTEIN 6.7 g/dL (6.6-8.7)
[2017-07-11 08:14] VITALS: BP 134/87
[2017-07-11] MEDS: Aspirin EC 81mg tab ORAL SCH (08:29)
[2017-07-11] MEDS: Lactobacillus-GG tablet ORAL SCH ×2 (08:29→12:31)
[2017-07-11] MEDS: BuPROPion XL 150mg tab ORAL SCH (08:29)
[2017-07-11] MEDS: Docusate 100mg cap ORAL SCH (08:30)
[2017-07-11] MEDS: Losartan 25mg tab ORAL SCH (08:30)
[2017-07-11] MEDS ORDERED: Fluconazole 100mg tab ORAL SCH (09:00)
[2017-07-11] MEDS: Vancomycin 1250mg/D5W 250ml IVPB SCH (09:30)
[2017-07-11 11:32] VITALS: BP 126/88
--- NOTE | 2017-07-12 03:45 | Discharge Summary ---
DATE OF ADMISSION: 07/08/2017 DATE OF DISCHARGE: 07/11/2017 ADMISSION DIAGNOSES: 1. Left upper extremity cellulitis. 2. Thrombophlebitis. 3. Asthma. 4. Sarcoidosis. 5. History of hypertension. DISCHARGE DIAGNOSES: 1. Left upper extremity cellulitis. 2. Thrombophlebitis. 3. Asthma. 4. Sarcoidosis. 5. History of hypertension. Hospital Course: The patient is a pleasant female who was admitted with complaints of cellulitis of the left upper extremity. She had had a CT scan done with contrast. Apparently, the IV got infiltrated. She developed superficial infection. She received intravenous antibiotics. She improved quickly with IV antibiotic therapy. On discharge, she was doing well. The patient will be discharged home with close outpatient followup. Discharge Medications: Please see discharge medication list for discharge medications. DIET: Cardiac diet. ACTIVITY: Ad-shane. FOLLOWUP: The patient will follow up in 1 to 2 weeks in office. Jeremias Altamirano M.D. DR: Mariana JOB#: [id number] CC:
--- NOTE | 2017-07-12 06:00 | Progress Note ---
DATE: 07/11/2017 CARDIOLOGY PROGRESS NOTE Subjective: The patient feels better. Pain has returned to baseline level. Arm swelling is nearly resolved completely. OBJECTIVE: Vital Signs: Blood pressure 126/88, pulse 87, respirations 20, and afebrile. NECK: Supple. LUNGS: Clear. CARDIAC: Regular. Normal S1 and S2 with a fourth heart sound. ABDOMEN: Soft. EXTREMITIES: Trace edema, left hand. Laboratory Data: BUN 15, creatinine 0.9, and potassium 4.4. Total cholesterol 193, LDL 109, and HDL 54. IMPRESSION: 1. Favorable lipid panel. 2. Systemic sarcoidosis. 3. History of cerebrovascular accident. 4. Recovering cellulitis. 5. Noncardiac chest pain. 6. Hypertensive heart disease. PLAN: 1. Stable for outpatient followup. 2. Consider advancing losartan to 50 mg daily. 3. Maintain other therapy without change. 4. Continue antiplatelet drugs. Alphonse Washington M.D. DR: ROBI JOB#: [id number] CC:
--- NOTE | 2017-07-12 07:15 | Consultation ---
DATE OF CONSULTATION: 07/08/2017 CARDIOLOGY CONSULTATION CONSULTING PHYSICIAN: Alphonse Washington M.D. REASON FOR CONSULTATION: Substernal chest pain. History Of Present Illness: This is a 46-year-old female with multiple risk factors for accelerated atherosclerosis. She presented to the emergency room with chest pressure. She notes it in her left arm and also involving her left hand and forearm. She describes it as a painful numbing sensation. Symptoms began since her MRI last week. She has had some nausea and indigestion as well. No vomiting or diarrhea. She has had chills, but no fevers and a productive cough. The patient has not taken any pain medications and has not had any prior history of heart attack, however, has had a prior stroke and does have labile hypertension. Past Medical History: Systemic sarcoidosis with pulmonary involvement, single kidney, degenerative disk disease with chronic back pain, fibromyalgia, chronic pain syndrome, depression, hypertension, history of cerebrovascular accident, history of TIA, and asthma. Allergies: Include BABITA inhibitor cough, sulfa, gabapentin, pregabalin, and acetaminophen. MEDICATIONS: Reviewed and reconciled. Social History: Social alcohol. No smoking. There is a prior history of substance abuse. Review Of Systems: She has had some chills. No fevers. No sweating. She does have headaches. She has had chest pain as noted. There is no history of seizure. She has diffuse muscle pain. She has not had any frequency or dysuria. She does have episodes of wheezing. She has not had any melena or bright red blood per rectum. There is no history of diabetes or thyroid impairment. PHYSICAL EXAMINATION: GENERAL: Moderately obese, presently in mild distress. Vital Signs: Blood pressure 127/88, pulse 78, respirations 18, and afebrile. HEENT: Conjunctivae pink. Sclerae anicteric. Oropharynx clear. NECK: Supple. CHEST: Chest wall with diffuse tenderness. LUNGS: Clear. Cardiac: Regular rhythm and rate. Normal S1 and S2 with a fourth heart sound. ABDOMEN: Soft and nontender. Moderately obese. Extremities: With 1+ edema of the left arm, more prominent distally, somewhat redness is noted as well. Laboratory And Diagnostic Data: White count 6 and hemoglobin 14.8. Sodium 143, potassium 3.8, bicarbonate 25, BUN 22, creatinine 0.9, and glucose 93. Troponin negative. Pro-natriuretic peptide 25. EKG, sinus rhythm with no acute abnormalities. Chest x-ray with no acute process. IMPRESSION: 1. Possible acute coronary syndrome. 2. Cellulitis, left upper extremity. 3. Systemic sarcoidosis. 4. History of cerebrovascular accident. 5. Paroxysmal bronchospasm. 6. Hypertensive heart disease. 7. Fibromyalgia with chronic pain. PLAN: 1. Cardiac monitoring. 2. Serial troponin. 3. Analgesics. 4. Empiric antibiotics. 5. Continued antiplatelet therapy. 6. Titrate antihypertensives. 7. We will follow. Alphonse Washington M.D. DR: ROBI JOB#: [id number] CC:
--- NOTE | 2017-07-14 15:51 | Cardiology Report ---
APPROVED REPORT EKG Measurement Heart [id number] CT 152P69 [id number] Normal sinus rhythm Normal ECG
== END 2017-07-11 13:00 | disposition home or self-care (01) | DRG 603 ==
LOC: EMR 15:25 → 2E 15:59 → EDBEDREQ 16:08 → 2E 18:00
DX: L03.114 Cellulitis of left upper limb (principal); J45.901 Unspecified asthma with (acute) exacerbation; I11.9 Hypertensive heart disease without heart failure; R07.89 Other chest pain; D86.9 Sarcoidosis, unspecified; Z86.73 Personal history of transient ischemic attack (TIA), and cerebral infarction without residual deficits; M79.7 Fibromyalgia; Z88.6 Allergy status to analgesic agent; Z88.2 Allergy status to sulfonamides; Z88.8 Allergy status to other drugs, medicaments and biological substances; I80.9 Phlebitis and thrombophlebitis of unspecified site; G89.4 Chronic pain syndrome; M54.9 Dorsalgia, unspecified; F32.9 Major depressive disorder, single episode, unspecified; I67.9 Cerebrovascular disease, unspecified
CPT/HCPCS: 36415; 71010; 80053; 80061; 80202; 82085; 82550; 83880; 84484; 85007; 85025; 85610; 85651; 85730; 93005; 94640; 94664; 99285; J2405

== ENCOUNTER 2017-12-04 08:24 | Inpatient (IN) | payer MEDICARE, OTHER ==
[~2017-12-04] VITALS: Ht 165.1 cm; Wt 105.2 kg
[~2017-12-04 08:24] MED LIST changes: +NORCO 10-325 T1 EACH ORAL
[2017-12-04 09:00] VITALS: BP 140/75
--- NOTE | 2017-12-04 09:14 | Emergency Room Report ---
History of Present Illness General Chief Complaint: Pain Source: Patient Present Illness HPI 47-year-old female, history of CVA, sarcoidosis, chronic pain, asthma presenting with generalized pain and feeling like her lungs are burning. Patient states that she has also been short of breath for 2 weeks. States that her primary care doctor wanted to admit her to the hospital last week, but stated that she did not want to be admitted just yet. However states that she is still had persistent symptoms, chronic generalized pain. Shortness of breath at rest and on exertion. States she has been using her inhaler at home. No recent hospitalizations no recent steroid use Allergies: Coded Allergies: LISINOPRIL (Verified Allergy, Severe, Shortness of Breath, 07/02/13) coughing, vomiting SULFA (SULFONAMIDE ANTIBIOTICS) (Verified Allergy, Severe, Hives, 07/02/13) GABAPENTIN (Unverified Allergy, Unknown, 06/21/15) ACETAMINOPHEN (Verified Adverse Reaction, Intermediate, upset stomach, ) PREGABALIN (Verified Adverse Reaction, Intermediate, 07/04/13) PT STATES SHE GETS SWOLLEN Patient History Past Medical History: see triage record Past Surgical History: none Pertinent Family History: none Now: No Reviewed Nursing Documentation: PMH: Agreed, PSxH: Agreed Nursing Documentation-PMH Past Medical History: No History, Except For Hx Cardiac Problems: Yes Hx Hypertension: Yes Hx Pacemaker: No Hx Asthma: Yes Hx COPD: Yes Hx Diabetes: Yes Hx Cancer: Yes Hx Gastrointestinal Problems: No Hx Dialysis: No Hx Neurological Problems: Yes Hx Cerebrovascular Accident: Yes - 2011 Hx Transient Ischemic Attacks: Yes - x6 Hx Seizures: No Hx Dysphasia: Yes Hx Numbness: Yes - Right sided numbness Hx Weakness: Yes - Generalized weakness Review of Systems All Other Systems: negative except mentioned in HPI Physical Exam Vital Signs Date Time Temp Pulse Resp B/P (MAP) Pulse Ox O2 Delivery O2 Flow Rate FiO2 12/04/17 08:28 97.8 75 20 156/101 97 Room Air 97.9 Sp02 EP Interpretation: reviewed, normal General Appearance: alert, GCS 15, non-toxic, moderate distress Head: normocephalic, atraumatic Eyes: bilateral eye normal inspection, bilateral eye PERRL, bilateral eye EOMI ENT: normal ENT inspection, normal pharynx, normal voice, moist mucus membranes Neck: normal inspection, full range of motion, supple Respiratory: normal inspection, lungs clear, normal breath sounds, no respiratory distress, no retraction, no wheezing, speaking full sentences, chest symmetrical Cardiovascular #1: normal inspection, regular rate, rhythm, no edema, normal capillary refill Cardiovascular #2: 2+ radial (R), 2+ radial (L) Gastrointestinal: normal inspection, non tender, soft, non-distended, no guarding Musculoskeletal: normal inspection, back normal, normal range of motion, non- tender Neurologic: normal inspection, alert, oriented x3, responsive, motor strength/ tone normal, sensory intact, normal gait, speech normal Psychiatric: normal inspection, judgement/insight normal, memory normal Skin: normal inspection, normal color, no rash, warm/dry, well hydrated, normal turgor Medical Decision Making Diagnostic Impression: Primary Impression: Chronic pain Additional Impression: Dyspnea ER Course 39-year-old female with chronic pain, generalized pain, shortness of breath DDX: Viral URI, pneumonia, progression of sarcoidosis Low concern for PE. PERC negative not asthma exacerbation pt not wheezing. Plan: Obtain labs, ua, EKG, CXR ER course: Patient has been monitored during ED stay, HD stable given pain meds labs unremarkable Disposition: Patient is to be admitted to [facility] D/W hospitalist Dr Altamirano Please note that this Emergency Department Report was dictated using [employer] assembl[employer] technology software, occasionally this can lead to erroneous entry secondary to interpretation by the dictation equipment. EKG Diagnostic Results EP Interpretation: Yes Rate: normal Rhythm: NSR ST Segments: No acute changes ASA given to patient: No Rhythm Strip EP Interpretation: Yes Rate: 72 Rhythm: NSR, no PVCs, no ectopy Chest X-ray CXR: Ordered: Yes 1 view Indication: Shortness of breath EP interpretation: Yes Interpretation: cardiomegaly Impression: cardiomegaly Electronically signed by Sherif Decker MD Laboratory Tests Test 12/04/17 09:20 12/04/17 09:22 White Blood Count 4.6 K/UL (4.8-10.8) L Red Blood Count 4.89 M/UL (4.20-5.40) Hemoglobin 15.6 G/DL (12.0-16.0) Hematocrit 45.7 % (37.0-47.0) Mean Corpuscular Volume 93 FL (80-99) Mean Corpuscular Hemoglobin 31.8 PG (27.0-31.0) H Mean Corpuscular Hemoglobin Concent 34.1 G/DL (32.0-36.0) Red Cell Distribution Width 11.7 % (11.6-14.8) Platelet Count 318 K/UL (150-450) Mean Platelet Volume 6.4 FL (6.5-10.1) L Neutrophils (%) (Auto) % (45.0-75.0) Lymphocytes (%) (Auto) % (20.0-45.0) Monocytes (%) (Auto) % (1.0-10.0) Eosinophils (%) (Auto) % (0.0-3.0) Basophils (%) (Auto) % (0.0-2.0) Differential Total Cells Counted 100 Neutrophils % (Manual) 31 % (45-75) L Lymphocytes % (Manual) 59 % (20-45) H Monocytes % (Manual) 9 % (1-10) Eosinophils % (Manual) 1 % (0-3) Basophils % (Manual) 0 % (0-2) Band Neutrophils 0 % (0-8) Platelet Estimate Adequate Platelet Morphology Normal Red Blood Cell Morphology Normal Sodium Level 139 MMOL/L (136-145) Potassium Level 4.0 MMOL/L (3.5-5.1) Chloride Level 106 MMOL/L (98-107) Carbon Dioxide Level 25 MMOL/L (21-32) Anion Gap 8 mmol/L (5-15) Blood Urea Nitrogen 14 mg/dL (7-18) Creatinine 0.8 MG/DL (0.55-1.30) Estimate Glomerular Filtration Rate > 60 mL/min (>60) Glucose Level 88 MG/DL (74-106) Calcium Level 9.8 MG/DL (8.5-10.1) Total Bilirubin 0.5 MG/DL (0.2-1.0) Aspartate Amino Transferase (AST) 23 U/L (15-37) Alanine Aminotransferase (ALT) 31 U/L (12-78) Alkaline Phosphatase 75 U/L (46-116) Total Protein 8.4 G/DL (6.4-8.2) H Albumin 4.4 G/DL (3.4-5.0) Globulin 4.0 g/dL Albumin/Globulin Ratio 1.1 (1.0-2.7) Urine Color Pale yellow Urine Appearance Clear Urine pH 5 (4.5-8.0) Urine Specific [place] 1.020 (1.005-1.035) Urine Protein Negative (NEGATIVE) Urine Glucose (UA) Negative (NEGATIVE) Urine Ketones Negative (NEGATIVE) Urine Occult Blood Negative (NEGATIVE) Urine Nitrite Negative (NEGATIVE) Urine Bilirubin Negative (NEGATIVE) Urine Urobilinogen Normal MG/DL (0.0-1.0) Urine Leukocyte Esterase Negative (NEGATIVE) Last Vital Signs Date Time Temp Pulse Resp B/P (MAP) Pulse Ox O2 Delivery O2 Flow Rate FiO2 12/04/17 08:28 97.8 75 20 156/101 97 Room Air 97.9 Disposition: ADMITTED INPATIENT Condition: Sherif Zamorano M.D. Dec 04, 2017 09:14
[2017-12-04 09:41] LABS: HEMATOCRIT 45.7 % (37.0-47.0); HEMOGLOBIN 15.6 G/DL (12.0-16.0); MEAN CORPUSCULAR VOLUME 93 FL (80-99); PLATELET COUNT 318 K/UL (150-450); RED BLOOD COUNT 4.89 M/UL (4.20-5.40); RED CELL DISTRIBUTION WIDTH 11.7 % (11.6-14.8); WHITE BLOOD COUNT 4.6 K/UL (4.8-10.8)
[2017-12-04 09:41] LABS: APPEARANCE,URINE CLEAR; BILIRUBIN, URINE NEGATIVE (NEGATIVE); COLOR,URINE PALE YELLOW; GLUCOSE, URINE (UA) NEGATIVE (NEGATIVE); KETONES,URINE NEGATIVE (NEGATIVE); LEUKOCYTE ESTERASE ,URINE NEGATIVE (NEGATIVE); NITRITE,URINE NEGATIVE (NEGATIVE); PH,URINE 5 (4.5-8.0); PROTEIN,URINE NEGATIVE (NEGATIVE); UROBILINOGEN,URINE NORMAL MG/DL (0.0-1.0)
[2017-12-04 09:48] LABS: ANION GAP 8 mmol/L (5-15); BLOOD UREA NITROGEN 14 mg/dL (7-18); CALCIUM 9.8 MG/DL (8.5-10.1); CARBON DIOXIDE 25 MMOL/L (21-32); CHLORIDE 106 MMOL/L (98-107); CREATININE 0.8 MG/DL (0.55-1.30); SODIUM 139 MMOL/L (136-145)
[2017-12-04 09:53] LABS: ALANINE AMINOTRANSFERASE 31 U/L (12-78); ALBUMIN 4.4 G/DL (3.4-5.0); ALBUMIN/GLOBULIN RATIO 1.1 (1.0-2.7); ALKALINE PHOSPHATASE 75 U/L (46-116); ASPARTATE AMINO TRANSFERASE 23 U/L (15-37); BILIRUBIN,TOTAL 0.5 MG/DL (0.2-1.0)
[2017-12-04] MEDS ORDERED: Ketorolac 30mg Inj IV ONE (10:00)
[2017-12-04 10:24] VITALS: BP 159/92
--- NOTE | 2017-12-04 11:35 | Diagnostic Imaging Report ---
Indication: Reason For Exam: SOB Technique: One view of the chest Comparison: 07/08/2017 Findings: The heart is enlarged. Lungs and pleural spaces are clear. There is leftward tracheal deviation again demonstrated. Findings are unchanged Impression: Cardiomegaly. No acute process Leftward tracheal deviation, presumably due to enlarged right thyroid lobe described on prior neck CT in 2015
[2017-12-04] MEDS: Losartan 25mg tab ORAL SCH (13:31)
[2017-12-04] MEDS: HYDROmorphone 1mg/ml Carpuject IVP PRN ×3 (13:34→22:01)
[2017-12-04] MEDS: Heparin 5000 units/ml inj SUBQ SCH ×2 (13:37→21:01)
[2017-12-04 15:51] VITALS: BP 135/96
[2017-12-04] MEDS: Docusate 100mg cap ORAL SCH (17:35)
[2017-12-04] MEDS: BuPROPion SR 150mg tab ORAL SCH (17:42)
[2017-12-04 20:00] VITALS: BP 135/95
[2017-12-04] MEDS: Albuterol ud Inhalation HHN SCH (21:51)
[2017-12-05] VITALS: BP 123/82
[2017-12-05] MEDS: HYDROmorphone 1mg/ml Carpuject IVP PRN ×6 (02:00→21:56)
[2017-12-05 04:00] VITALS: BP 117/77
[2017-12-05] MEDS: Albuterol ud Inhalation HHN SCH ×2 (07:49→21:06)
[2017-12-05 08:00] VITALS: BP 121/75
[2017-12-05] MEDS: Aspirin Baby 81mg NG SCH (09:41)
[2017-12-05] MEDS: BuPROPion SR 150mg tab ORAL SCH (09:42)
[2017-12-05] MEDS: Docusate 100mg cap ORAL SCH ×2 (09:42→18:02)
[2017-12-05] MEDS: Losartan 25mg tab ORAL SCH (09:42)
[2017-12-05] MEDS: Heparin 5000 units/ml inj SUBQ SCH ×2 (09:51→20:26)
--- NOTE | 2017-12-05 10:56 | Diagnostic Imaging Report ---
Indication: Neck pain and swelling Technique: No IV contrast, per referring physician request. Noncontrast spiral acquisitions obtained through the neck Multiplanar reconstructions were generated. Total dose length product 584.64 mGycm. CTDIvol(s) 20.36 mGy. Radiation dose was minimized using automated exposure control Comparison: none Findings: Lack of IV contrast limits assessment. The thyroid is diffusely enlarged and heterogeneous. The right thyroid lobe is more enlarged than the left. This results in narrowing and leftward deviation of the trachea. The trachea is narrowed by about 50% in the transverse dimension as it passes through the thyroid. The nasopharynx, oropharynx, hypopharynx, and larynx are unremarkable. The bilateral parapharyngeal spaces are clear. No prevertebral soft tissue swelling. No definite tonsillar enlargement. There are numerous prominent but not frankly enlarged posterior and anterior triangle lymph nodes bilaterally. The largest node is a right jugulodigastric node which measures 2 cm long axis dimension. The included sinuses are clear. There are several missing teeth. The remaining dentition is grossly intact. The bones are unremarkable. Except for the thyroid abnormality, the included upper mediastinum is unremarkable. The included lung apices are clear. There is a linear focus of high attenuation in the subcutaneous fat lateral to the right mandibular body. Impression: Enlarged multinodular thyroid, most likely multinodular goiter. Consider further evaluation with thyroid ultrasound. Enlarged thyroid results in leftward tracheal deviation and approximately 50% diameter narrowing of the trachea in the transverse plane. Nonspecific prominent but not frankly enlarged bilateral lymph nodes Exam is limited for evaluation of infection in the absence of IV contrast. No gross evidence of cellulitis or abscess. The CT scanner at [facility] is accredited by the [employer] and the scans are performed using protocols designed to limit radiation exposure to as low as reasonably achievable to attain images of sufficient resolution adequate for diagnostic evaluation.
--- NOTE | 2017-12-05 11:50 | General Progress Note ---
Assessment/Plan Status: stable Assessment/Plan MDD, recurrent mod -dc Lexapro -dec Wellbutrin -start Seroquel Subjective Date patient seen: Dec 05, 2017 Neurologic/Psychiatric: Reports: anxiety, depressed, emotional problems Allergies: Coded Allergies: LISINOPRIL (Verified Allergy, Severe, Shortness of Breath, 07/02/13) coughing, vomiting SULFA (SULFONAMIDE ANTIBIOTICS) (Verified Allergy, Severe, Hives, 07/02/13) GABAPENTIN (Unverified Allergy, Unknown, 06/21/15) ACETAMINOPHEN (Verified Adverse Reaction, Intermediate, upset stomach, ) PREGABALIN (Verified Adverse Reaction, Intermediate, 07/04/13) PT STATES SHE GETS SWOLLEN Objective Last 24 Hour Vital Signs Date Time Temp Pulse Resp B/P (MAP) Pulse Ox O2 Delivery O2 Flow Rate FiO2 12/05/17 09:42 121/75 12/05/17 08:00 97.7 75 20 121/75 96 Room Air 12/05/17 08:00 82 18 Room Air 12/05/17 07:49 79 18 96 Room Air 21 12/05/17 06:37 97.7 12/05/17 06:37 97.7 12/05/17 06:07 97.7 12/05/17 06:07 97.7 12/05/17 04:00 97.7 78 19 117/77 96 12/05/17 02:00 98.2 12/05/17 00:40 98.2 12/05/17 00:00 97.7 76 20 123/82 96 12/04/17 22:01 98.2 12/04/17 21:51 21 12/04/17 21:50 76 20 98 Room Air 21 12/04/17 21:48 76 20 Room Air 21 12/04/17 20:00 98.2 74 20 135/95 98 12/04/17 17:43 97.7 12/04/17 17:35 97.7 12/04/17 15:51 97.7 74 20 135/96 94 Room Air 12/04/17 13:31 159/92 Intake and Output 12/04/17 12/05/17 19:00 07:00 Intake Total 750 ml 1600 ml Output Total 100 ml Balance 750 ml 1500 ml Intake Oral 500 ml 1000 ml IV Total 250 ml 600 ml Output Emesis 100 ml # Voids 3 Height (Feet): 5 Height (Inches): 5.00 Weight (Pounds): 232 General Appearance: no apparent distress, alert, obese Neurologic: alert, oriented x 3, responsive, depressed affect Lio Polk M.D. Dec 05, 2017 11:50
[2017-12-05 12:00] VITALS: BP 118/70
[2017-12-05] MEDS: Solu-MEDROL 40mg Inj IVP SCH ×2 (14:05→21:10)
--- NOTE | 2017-12-05 15:15 | History and Physical Report ---
DATE OF ADMISSION: 12/04/2017 CHIEF COMPLAINT: Chest pain. HISTORY OF PRESENT ILLNESS: The patient is a pleasant 47-year-old female. She has multiple medical problems including history of stroke, sarcoidosis. She has history of fibromyalgia, depression, and anxiety. She presented from home with complaints of "burning in her chest". According to the patient, she was well until one to two weeks prior to admission. She developed some shortness of breath and URI symptoms. She took her inhalers at home. Symptoms initially improved, but they became worse. She presented to the emergency room. On evaluation there, her x-rays unremarkable except she was noted to have some deviation of her trachea. There is no evidence of any infiltrates. She received a dose of IV pain medication for pain, but continued to have persistent pain and is now admitted for further evaluation and care. PAST MEDICAL HISTORY: As above. She has history of hypertension, anxiety, and depression. 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 CURRENT MEDICATIONS: Reconciled and reviewed. ALLERGIES: Include gabapentin, lisinopril, Lyrica, and sulfa. SOCIAL HISTORY: There is no known history of tobacco, ethanol, or drugs. FAMILY HISTORY: Noncontributory. REVIEW OF SYSTEMS: GENERAL: No fever or chills. HEENT: No headaches or visual changes. CARDIOPULMONARY: Positive chest pain. Positive shortness of breath and wheezing. GASTROINTESTINAL: No nausea or vomiting. GENITOURINARY: No urgency or frequency. MUSCULOSKELETAL: No joint pain or swelling. NEUROLOGIC: No evidence of seizures. PHYSICAL EXAMINATION: VITAL SIGNS: Temperature 97.7 degrees, pulse 76, respirations 20, and blood pressure 123/82. GENERAL: The patient is well developed, no apparent distress. NECK: Supple. Thyroid gland appears full. HEART: Regular rate and rhythm. LUNGS: Significant for scattered wheezes. ABDOMEN: Soft, obese, nontender, and nondistended. EXTREMITIES: Without clubbing or cyanosis. LABORATORY DATA: Showed white count 5 and hemoglobin 15. Sodium 139. UA was clear. Troponins pending. ASSESSMENT: This is a pleasant female admitted with complaints of "chest burning/pain" suspect secondary to asthma exacerbation. 1. Asthma exacerbation. 2. Chest pain, rule out acute coronary syndrome. 3. Depression. 4. Hypertension. PLAN: IV steroids, respiratory treatments. CT scan of the neck/chest. IV pain medications for pain control. Psychiatric consultation also will be obtained. Jeremias Altamirano M.D. DR: Mariana JOB#: [id number] CC:
[2017-12-05] MEDS: Lactulose 20gm/30ml UDC ORAL PRN ×2 (15:19→18:01)
--- NOTE | 2017-12-05 15:22 | Cardiology Report ---
APPROVED REPORT EKG Measurement Heart [id number] ME 154P58 [id number] Normal sinus rhythm with sinus arrhythmia Normal ECG
[2017-12-05 16:00] VITALS: BP 137/93
[2017-12-05] MEDS ORDERED: 1/2 NS 1000ml IV ONE (16:01)
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
[2017-12-05 20:00] VITALS: BP 142/87
[2017-12-06] VITALS: BP 131/81
[2017-12-06] MEDS: HYDROmorphone 1mg/ml Carpuject IVP PRN ×6 (02:37→22:48)
[2017-12-06 04:00] VITALS: BP 154/86
[2017-12-06] MEDS: Solu-MEDROL 40mg Inj IVP SCH ×3 (05:01→21:13)
[2017-12-06 08:00] VITALS: BP 136/92
[2017-12-06] MEDS: Albuterol ud Inhalation HHN SCH ×2 (08:21→22:26)
[2017-12-06] MEDS ORDERED: BuPROPion SR 150mg tab ORAL SCH (09:00)
[2017-12-06] MEDS: Aspirin Baby 81mg NG SCH (09:00)
[2017-12-06] MEDS: BuPROPion SR 150mg tab ORAL SCH (09:01)
[2017-12-06] MEDS: DULoxetine 30mg cap ORAL SCH (09:01)
[2017-12-06] MEDS: Docusate 100mg cap ORAL SCH ×2 (09:01→18:46)
[2017-12-06] MEDS: Losartan 25mg tab ORAL SCH (09:02)
[2017-12-06] MEDS: Heparin 5000 units/ml inj SUBQ SCH ×2 (09:06→21:14)
[2017-12-06 12:00] VITALS: BP 140/99
--- NOTE | 2017-12-06 13:29 | General Progress Note ---
Assessment/Plan Problem List: (1) Back pain ICD Codes: M54.9 - Back pain SNOMED: 208535633 (2) Facial pain ICD Codes: R51 - Headache SNOMED: 10535136 (3) Depression with anxiety ICD Codes: F41.8 - Other specified anxiety disorders SNOMED: 524038509 (4) chronic pain/fibromyalgia (5) mrbid obesity (6) Sarcoidosis of lung ICD Codes: D86.0 - Sarcoidosis of lung SNOMED: 57107018 (7) TIA (transient ischemic attack) ICD Codes: G45.9 - TIA (transient ischemic attack) SNOMED: 227384749 Status: stable, progressing Assessment/Plan endo eval for goiter Subjective ROS Limited/Unobtainable: No Constitutional: Reports: malaise, weakness HEENT: Reports: no symptoms Cardiovascular: Reports: no symptoms Respiratory: Reports: no symptoms Gastrointestinal/Abdominal: Reports: no symptoms Genitourinary: Reports: no symptoms Neurologic/Psychiatric: Reports: no symptoms Allergies: Coded Allergies: LISINOPRIL (Verified Allergy, Severe, Shortness of Breath, 07/02/13) coughing, vomiting SULFA (SULFONAMIDE ANTIBIOTICS) (Verified Allergy, Severe, Hives, 07/02/13) GABAPENTIN (Unverified Allergy, Unknown, 06/21/15) ACETAMINOPHEN (Verified Adverse Reaction, Intermediate, upset stomach, ) PREGABALIN (Verified Adverse Reaction, Intermediate, 07/04/13) PT STATES SHE GETS SWOLLEN All Systems: reviewed and negative except above Subjective pain better controlled. no sob. Objective Last 24 Hour Vital Signs Date Time Temp Pulse Resp B/P (MAP) Pulse Ox O2 Delivery O2 Flow Rate FiO2 12/06/17 12:18 97.5 12/06/17 12:00 97.9 90 18 140/99 94 97.9 12/06/17 09:02 136/92 12/06/17 08:22 98 Room Air 12/06/17 08:20 97 22 99 Room Air 12/06/17 08:15 88 20 98 Room Air 21 12/06/17 08:00 97.5 91 19 136/92 96 97.5 12/06/17 07:10 97.3 12/06/17 06:40 97.3 12/06/17 06:01 97.3 12/06/17 05:02 97.3 12/06/17 04:00 98.1 92 20 154/86 96 Room Air 98.1 12/06/17 02:37 97.3 12/06/17 00:00 97.3 87 20 131/81 97 Room Air 97.3 12/05/17 23:25 97.9 12/05/17 21:56 97.9 12/05/17 21:06 97 22 99 Room Air 12/05/17 21:00 89 20 98 Room Air 21 12/05/17 20:00 97.9 85 18 142/87 97 Room Air 97.9 12/05/17 16:00 97.8 91 19 137/93 95 Room Air 97.8 Intake and Output 12/05/17 12/06/17 19:00 07:00 Intake Total 1340 ml 790 ml Balance 1340 ml 790 ml Intake Oral 820 ml 240 ml IV Total 520 ml 550 ml # Voids 3 3 Height (Feet): 5 Height (Inches): 5.00 Weight (Pounds): 232 General Appearance: WD/WN, alert Neck: supple Cardiovascular: regular rhythm Respiratory/Chest: chest wall non-tender, lungs clear, normal breath sounds Abdomen: normal bowel sounds, non tender, soft, no organomegaly Edema: no edema noted Arm (L), no edema noted Arm (R), no edema noted Leg (L), no edema noted Leg (R), no edema noted Pedal (L), no edema noted Pedal (R), no edema noted Generalized NAVJOT RAMSAY Dec 06, 2017 13:29
[2017-12-06 16:00] VITALS: BP 151/97
[2017-12-06 20:00] VITALS: BP 150/91
--- NOTE | 2017-12-06 20:30 | Progress Note ---
DATE: 12/06/2017 SUBJECTIVE: The patient is in bed, pleasant. Continues to have depressive symptoms, which were mostly grief and PTSD symptoms. The patient felt well, tolerated medication, and calmer today. MENTAL STATUS EXAMINATION: Alert and oriented times self, place, and situation she is in. Mood is depressed. Affect is constricted. Congruent with mood. Thought process is concrete. Thought content, no suicidal or homicidal ideation. ASSESSMENT: Major depressive disorder and anxiety. PLAN: We will continue with current medication and provide the patient with supportive therapy and reality orientation. Lio Polk M.D. DR: ALFREDO JOB#: [id number] CC:
[2017-12-07] VITALS: BP 147/88
[2017-12-07] MEDS: HYDROmorphone 1mg/ml Carpuject IVP PRN (04:15)
[2017-12-07 04:38] VITALS: BP 139/92
[2017-12-07] MEDS: Solu-MEDROL 40mg Inj IVP SCH ×2 (05:35→13:47)
[2017-12-07] MEDS ORDERED: BUPROPION HCL150 M5 ORAL (07:51)
[2017-12-07] MEDS ORDERED: SEROQUEL25 MG ORAL (07:51)
[2017-12-07 08:00] VITALS: BP 153/97
[2017-12-07] MEDS: DULoxetine 30mg cap ORAL SCH (08:19)
[2017-12-07] MEDS: Aspirin Baby 81mg NG SCH (08:20)
[2017-12-07] MEDS: BuPROPion SR 150mg tab ORAL SCH (08:20)
[2017-12-07] MEDS: Docusate 100mg cap ORAL SCH (08:20)
[2017-12-07] MEDS: Heparin 5000 units/ml inj SUBQ SCH (08:21)
[2017-12-07] MEDS: Losartan 25mg tab ORAL SCH (08:30)
--- NOTE | 2017-12-07 10:33 | Diagnostic Imaging Report ---
Indication: Enlarged thyroid Technique: Grayscale and duplex images of the thyroid Comparison: Is made to neck CT dated 12/05/2017 Findings: Right thyroid lobe measures 6.7 cm length x 2.3 cm AP. Left thyroid lobe measures 4.9 cm length x 2.4 cm AP. Both thyroid lobes demonstrate diffusely heterogeneous echogenicity, with innumerable solid, cystic, and mixed nodules of varying sizes. . Impression: Enlarged multinodular thyroid, most likely multinodular goiter, corresponding to abnormality described on recent chest CT
[2017-12-07] MEDS: Albuterol ud Inhalation HHN SCH (10:51)
--- NOTE | 2017-12-07 11:30 | General Progress Note ---
Assessment/Plan Status: stable Assessment/Plan MDD, recurrent mod -dc Lexapro -dec Wellbutrin -script for Seroquel and Cymbalta was given Subjective Date patient seen: Dec 07, 2017 Neurologic/Psychiatric: Reports: anxiety, depressed, emotional problems Allergies: Coded Allergies: LISINOPRIL (Verified Allergy, Severe, Shortness of Breath, 07/02/13) coughing, vomiting SULFA (SULFONAMIDE ANTIBIOTICS) (Verified Allergy, Severe, Hives, 07/02/13) GABAPENTIN (Unverified Allergy, Unknown, 06/21/15) ACETAMINOPHEN (Verified Adverse Reaction, Intermediate, upset stomach, ) PREGABALIN (Verified Adverse Reaction, Intermediate, 07/04/13) PT STATES SHE GETS SWOLLEN Objective Last 24 Hour Vital Signs Date Time Temp Pulse Resp B/P (MAP) Pulse Ox O2 Delivery O2 Flow Rate FiO2 12/07/17 10:53 90 16 98 Room Air 12/07/17 10:53 98 Room Air 12/07/17 08:30 153/97 12/07/17 08:00 98.1 89 20 153/97 97 98.1 12/07/17 04:38 98.3 79 20 139/92 94 98.3 12/07/17 04:38 Room Air 12/07/17 00:00 95 Room Air 12/07/17 00:00 98.0 74 20 147/88 92 98.0 12/06/17 22:34 86 18 99 Room Air 12/06/17 22:26 83 18 97 Room Air 21 12/06/17 20:00 Room Air 12/06/17 20:00 98.1 79 19 150/91 92 98.1 12/06/17 19:52 97 Room Air 12/06/17 16:00 97.9 84 20 151/97 96 97.9 12/06/17 13:17 97.5 12/06/17 12:18 97.5 12/06/17 12:00 97.9 90 18 140/99 94 97.9 Intake and Output 12/06/17 12/07/17 19:00 07:00 Intake Total 2200 ml 960 ml Balance 2200 ml 960 ml Intake Oral 1600 ml 360 ml IV Total 600 ml 600 ml # Voids 5 2 # Bowel Movements 3 Laboratory Tests 12/07/17 09:00: Thyroid Stimulating Hormone (TSH) 0.115L, Free Thyroxine 0.90, Triiodothyonine ( T3) [Pending] Height (Feet): 5 Height (Inches): 5.00 Weight (Pounds): 232 General Appearance: no apparent distress Neurologic: alert, oriented x 3, responsive Lio Polk M.D. Dec 07, 2017 11:30
[2017-12-07 11:51] VITALS: BP 156/99
--- NOTE | 2017-12-07 22:32 | Discharge Summary ---
DATE OF ADMISSION: 12/04/2017 DATE OF DISCHARGE: 12/07/2017 ADMISSION DIAGNOSES: 1. Shortness of breath. 2. Possible asthma exacerbation. 3. Fibromyalgia. 4. Sarcoidosis. 5. History of stroke. DISCHARGE DIAGNOSES: 1. Shortness of breath. 2. Possible asthma exacerbation. 3. Fibromyalgia. 4. Sarcoidosis. 5. History of stroke. 6. 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 HOSPITAL COURSE: The patient is a pleasant female admitted with complaints of shortness of breath. She was diagnosed with asthma exacerbation. She also had severe depression. She was seen by psychiatry. Her psychiatric medications were adjusted. The patient did feel much better. She had a CAT scan of the neck that did show a large goiter with compression of the trachea leading to a reduction in the airway by about 50%. The patient did not have any stridor and she improved with steroids. She will be referred to an endocrinologists for evaluation for goiter as an outpatient. The patient was agreeable with the plan of care DISCHARGE MEDICATIONS: Please see discharge medication list for discharge medications. DIET: Cardiac diet. ACTIVITY: Ad shane. FOLLOWUP: The patient to follow up in one to two weeks in the office. Jeremias Altamirano M.D. DR: KOLTON JOB#: [id number] CC:
[2017-12-13] MEDS ORDERED: CYMBALTA30 MG ORAL (11:19)
[2017-12-14] MEDS ORDERED: SEROQUEL50 MG ORAL (15:47)
== END 2017-12-07 15:40 | disposition home or self-care (01) | DRG 203 ==
LOC: EMR 08:40 → 4W 09:30 → EDBEDREQ 09:59
DX: J45.901 Unspecified asthma with (acute) exacerbation (principal); E66.01 Morbid (severe) obesity due to excess calories; I10 Essential (primary) hypertension; J39.8 Other specified diseases of upper respiratory tract; E04.9 Nontoxic goiter, unspecified; F32.9 Major depressive disorder, single episode, unspecified; R07.9 Chest pain, unspecified; M54.9 Dorsalgia, unspecified; F41.8 Other specified anxiety disorders; M79.7 Fibromyalgia; D86.0 Sarcoidosis of lung; Z88.2 Allergy status to sulfonamides; Z88.8 Allergy status to other drugs, medicaments and biological substances; Z86.73 Personal history of transient ischemic attack (TIA), and cerebral infarction without residual deficits; Z88.6 Allergy status to analgesic agent; F43.20 Adjustment disorder, unspecified
CPT/HCPCS: 36415; 70490; 71045; 76536; 80053; 81003; 82962; 84439; 84443; 85007; 85025; 93005; 94640; 94664; 94760; 99285; J2405

== ENCOUNTER 2018-01-25 09:13 | Outpatient (CLI) | payer MEDICARE, OTHER ==
[~2018-01-25 09:13] MED LIST changes: +BUPROPION HCL150 M5 ORAL; +CYMBALTA30 MG ORAL; +SEROQUEL25 MG ORAL; +SEROQUEL50 MG ORAL
[2018-01-25 09:33] LABS: HEMATOCRIT 46.7 % (37.0-47.0); MEAN CORPUSCULAR VOLUME 92 FL (80-99); PLATELET COUNT 318 K/UL (150-450); RED BLOOD COUNT 5.07 M/UL (4.20-5.40); RED CELL DISTRIBUTION WIDTH 11.9 % (11.6-14.8); WHITE BLOOD COUNT 5.6 K/UL (4.8-10.8)
[2018-01-25 09:48] LABS: ALANINE AMINOTRANSFERASE 35 U/L (12-78); ALBUMIN 4.7 G/DL (3.4-5.0); ALBUMIN/GLOBULIN RATIO 1.3 (1.0-2.7); ALKALINE PHOSPHATASE 81 U/L (46-116); ANION GAP 12 mmol/L (5-15); ASPARTATE AMINO TRANSFERASE 21 U/L (15-37); BILIRUBIN,TOTAL 0.5 MG/DL (0.2-1.0); BLOOD UREA NITROGEN 10 mg/dL (7-18); CALCIUM 9.5 MG/DL (8.5-10.1); CARBON DIOXIDE 25 MMOL/L (21-32); CHLORIDE 105 MMOL/L (98-107); CREATININE 1.1 MG/DL (0.55-1.30); SODIUM 141 MMOL/L (136-145)
== END 2018-01-25 11:13 | disposition home or self-care (01) ==
LOC: LAB 09:13
DX: F32.9 Major depressive disorder, single episode, unspecified (principal); F39 Unspecified mood [affective] disorder
CPT/HCPCS: 36415; 80053; 83036; 85007; 85025

== ENCOUNTER 2018-02-01 08:32 | Outpatient (CLI) | payer MEDICARE, OTHER | END 2018-02-01 10:32 | disposition home or self-care (01) | LOC: LAB 08:32 | DX: K62.5 Hemorrhage of anus and rectum (principal) | CPT/HCPCS: 36415; 84436; 84443 ==